=== PATIENT | male | born 1950 | race Caucasian/White ===

== ENCOUNTER → 2024-12-15 12:04 | Outpatient (REF) | payer OTHER, SELFPAY | LOC: HWRAD 12:04 | PROVIDERS: ATTENDING PHYSICIAN Physician Assistant | DX: M25.561 Pain in right knee (principal) | CPT/HCPCS: 73564 ==

== ENCOUNTER → 2025-01-12 09:55 | Outpatient (REF) | payer OTHER, SELFPAY | LOC: RAD 09:55 | PROVIDERS: ATTENDING PHYSICIAN Physician Assistant; FAMILY PHYSICIAN Family Medicine | DX: R13.14 Dysphagia, pharyngoesophageal phase (principal) | CPT/HCPCS: 74246 ==

== ENCOUNTER 2025-02-07 21:26 | Inpatient (IN) | payer OTHER, SELFPAY ==
[2025-02-07] VITALS (33 sets, daily range): BP systolic 75–211; BP diastolic 45–143; BMI 29.7
--- NOTE | 2025-02-07 17:48 | EDRN ---
1750 RSI medications given to intubate the patient.
20mg etomidate IVP
100mg rocuronium IVP
7.5 ETT placed with with positive color change and bilateral breath sounds.
--- NOTE | 2025-02-07 18:04 | ED.GENMED ---
History of Present Illness
General
Chief Complaint: CODE
Source: records, family and ambulance crew
Exam Limitations: clinical condition
Time Seen by Provider: 02/07/25 17:57
Nursing documentation reviewed up to this point in time: agreed with
History of Present Illness
History of Present Illness:
74-year-old male presents to the emergency room status post cardiac arrest. Patient cannot participate in history, history obtained from EMS crew as well as patient's with whom I directly spoke. Apparently patient sat down to watch a [employer]
this afternoon around 130 or 2 PM and told his that he was feeling a bit dizzy. She says that he looked pale. Apparently they checked his blood pressure and it was low. He says that he was having some 'fuzziness' of his vision. They decided
to call the primary doctor and by the time they spoke to the on-call physician patient was feeling a bit better. They sat him down and put his feet up and had him drink some water and he relax for the afternoon. Around 5 PM he was talking to his
family and suddenly went unresponsive. No pulse detected EMS was called and daughter initiated CPR. BLS arrived and applied AED and shock advised x 2; patient had ROSC after second shock. On arrival of ALS crew patient had strong pulses sinus
tachycardia with some nonspecific ST changes on EKG. He was transported to the emergency room. He apparently did not complain of any chest pain according to , no known cardiac history. He has seen Dr. Salazar for 'thrombophlebitis.'
Review of Systems
Review of Systems
Unable to obtain full review of systems at this time due to: due to acuity
All Other Systems: Not applicable
Phy Exam
Physical Exam
Physical Exam:
General: Responsive to painful stimuli GCS is 7
Head: Normocephalic, atraumatic
Eyes: Conjunctiva normal, pupils midrange and sluggish bilaterally
Throat: Vomitus around upper airway, moist mucous membranes
Neck: Trachea midline
Lungs: Clear to auscultation bilaterally, no wheezing, rales, rhonchi
Heart: Tachycardia with regular rhythm, no murmurs, gallops, or rubs
Abd: Soft, mildly distended
Neuro: GCS 7 as above
Extremities: No edema in extremities, equal pulses in all extremities
Scores
Heart Failure Risk
Heart Failure Risk Score: Not Applicable
Heart Score for Chest Pain Patients
STEMI patient?: Not applicable
Withdrawal Assessment of Alcohol
Withdrawal Assessment Completed?: Not applicable
Course
Orders/Labs/Results
Orders:
Orders
02/07/25 17:46
EKG [Electrocardiogram (*1)] Urgent
Reason for Study: Chest Pain
02/07/25 17:47
EKG- Treatment ONCE
02/07/25 17:54
Propofol 1,000,000 Mcg/100 ml [Diprivan] 1,000,000 mcg in 100 ml .ROUTE .STK-MED
Chest X-ray Portable [CR Chest Portable - 1 View] Urgent
Comment:
Reason For Exam: post intubation
Reason Study Needs to be Portable: Patient Unstable
02/07/25 17:57
FentaNYL 1,000 MCG/100 ML [Sublimaze] 1,000 mcg in 100 ml IV NOW
Indication:: Light Sedation
Begin Infusion:: Now
Goal:: pain score </= 1, CPOT 0-2
Maximum dose in mcg/hr:: 300
Continue currently infusing dose and titrate:: Yes
Titration Instructions:: Titrate every 30 minutes if patient exhibits signs of pain or discomfort
Titration Instructions:: (pain score >/= 2, CPOT >/= 3).
Titration Instructions:: Administer bolus dose and increase infusion by 25 mcg/hr.
Taper Instructions:: If pain score at goal for 4 consecutive hours (pain score </= 1, CPOT 0-2)
Taper Instructions:: decrease infusion by 50 mcg/hr every 2 hours.
Taper Instructions:: When dose </= 50 mcg/hr may turn infusion off and consider PRN
Taper Instructions:: intermittent bolus doses only.
Over-sedation Instructions:: If CPOT 0-2 (goal) and RASS -3 to -5 (below goal) decrease sedative by 50%
Over-sedation Instructions:: first. If pain score remains at goal and RASS remains below goal in 1 hour,
Over-sedation Instructions:: decrease opioid infusion by 50%.
Notify provider:: immediately if pt exhibits: chest wall rigidity, hemodynamic instability,
Notify provider:: agitation/pain despite maximum dosing, pain when RASS below goal.
Additional Instructions:: Patient MUST be mechanically ventilated.
Fentanyl Citrate/Pf [Sublimaze] 50 mcg IV NOW STA
Fentanyl Citrate/Pf [Sublimaze] 50 mcg IV [id number] PRN
Propofol 1,000,000 Mcg/100 ml [Diprivan] 1,000,000 mcg in 100 ml IV NOW
Indication:: Light Sedation
Begin Infusion:: Now
Goal:: RASS 0 to -2
Maximum dose in mcg/kg/min:: 50
Initial dose based on RASS:: Yes
If RASS is:: +1 or pt hemodynamically unstable (SBP < 90mmHg), initiate at 10 mcg/kg/min
If RASS is:: +2, initiate at 20 mcg/kg/min
If RASS is:: greater than or equal to +3, initiate at 30 mcg/kg/min
Titration Instructions:: Titrate by 5-10 mcg/kg/min every 5 minutes until RASS 0 to -2 achieved.
Taper Instructions:: If RASS is at or below goal for 4 consecutive hours decrease infusion by
Taper Instructions:: 5-10 mcg/kg/min every 2 hours to off.
Over-sedation Instructions:: If CPOT 0-2 (at goal) AND RASS -3 to -5 (below goal) decrease sedative by
Over-sedation Instructions:: 50% first. If pain score remains at goal and RASS remains below goal in
Over-sedation Instructions:: 1 hour, decrease opioid infusion by 50%.
Notify provider:: immediately if patient exhibits signs/symptoms of propofol-related
Notify provider:: infusion syndrome.
Additional Instructions:: Patient MUST be mechanically ventilated and MUST receive analgesia.
02/07/25 17:58
CT Chest/abd/pelvis Angio W/wo Urgent
Comment:
Reason For Exam: chest pain, severe HTN, cardiac arrest
CT Head W/o Iv Contrast Urgent
Comment:
Reason For Exam: cardiac arrest
0.9% Sodium Chloride 1000 ml [Nss] 1,000 ml IV BOLUS
02/07/25 17:59
Alcohol Urgent
Complete Blood Count/With Diff Urgent
Comprehensive Metabolic Panel Urgent
Lactate Level [Lactic Acid] Urgent
NT-proBNP Urgent
PTT Urgent
Prothrombin Time Urgent
Triglycerides Routine
Comment: baseline levels with propofol infusion
Troponin I Urgent
02/07/25 18:00
Electrocardiogram (*1) Urgent
Reason for Study: Chest Pain
EKG- Treatment ONCE
COVID-19 Antigen Urgent
Source: Nasal Swab
Influenza A+B Rapid Molecular Urgent
JESSE Source: Nasal Swab
Specimen Description:
02/07/25 18:01
Type+Screen Urgent
Blood Culture Q30M
JESSE Source: Blood/Venous
Specimen Description:
Blood Culture Q30M
JESSE Source: Blood/Venous
Specimen Description:
02/07/25 18:17
Echo 2D MMode Color/Doppler Urgent
Reason for Study: cardiac arrest
CARDIOLOGY CONSULT Urgent
Consulting Provider: Mignon Treviño
Was physician already notified: Yes
02/07/25 19:03
Metoprolol [Lopressor] 5 mg .ROUTE .STK-MED ONE
02/07/25 19:04
Metoprolol [Lopressor] 5 mg IV NOW STA
02/07/25 19:07
Nicardipine 40 mg/200 ml [Cardene] 40 mg in 200 ml IV NOW
Initial dose in mg/hr, then titrate:: 5
Titrate to keep:: SBP 140 - 160 mmHg
Titrate by mg/hr:: 2.5 mg/hr
Frequency of titrations (minutes):: 5-15 minutes
Maximum dose in mg/hr:: 15
Begin to taper infusion when:: Remained at goal for 2hrs
Taper by mg/hr:: 2.5 mg/hr
Frequency of taper (minutes) if patient maintains goal:: 15-30 minutes
Taper to off?: Yes
If infusion off & no longer maintaining goal:: Contact Provider
02/07/25 19:16
Drug Screen, Urine [Urine Drug Abuse Screen] Urgent
Date Specimen was Collected: 02/07/25
Time Specimen was Collected: 19:14
Urinalysis Reflex To Culture Urgent
Date Specimen was Collected: 02/07/25
Time Specimen was Collected: 19:14
Urine Microscopic Reflex Cult Urgent
Urine Culture Urgent
JESSE Source: U
Specimen Description:
Date Specimen was Collected: 02/07/25
Time Specimen was Collected: 19:14
02/07/25 19:24
ABO2 Urgent
BBK Wristband Number:
Associate notified that ABO2 has been ordered: [id number]
Date: 02/07/25
Time: 18:13
Professional Employer Consultant ID: [id number]
02/07/25 19:25
ABG [Arterial Blood Gas] Urgent
%Oxygen/Room Air: 95
02/07/25 19:28
Aspirin Chewable [Low Strength Aspirin] 324 mg TUBE NOW STA
Heparin 4,000 units IV NOW STA
Pharmacy Request to Place See Dose Instructions PO NOW STA
Discontinue all Active Warfarin orders?: Yes
Nursing to Place Non Medication Order As Directed
Physician Order: PTT 6 hours after initial start of Heparin infusion
Above order entered?: Yes
02/07/25 19:30
EKG [Electrocardiogram (*1)] Urgent
Reason for Study: Chest Pain
Heparin 65078 Units/250 ml 25,000 units in 250 ml IV PER PROTOCOL
Weight to be used for heparin protocol in kilograms (kg):: 93.6
Protocol:: Cardiac Tx/Acute Coronary
PTT Goal Range to be used:: PTT 73 to 111 seconds
Order type:: Initial
INITIAL Infusion Dose (UNITS/KG/hr) & then follow protocol:: 12 units/kg/hr
Infusion Dose in UNITS/hr & then follow protocol (UNITS/hr):: 1,000
INFUSION RATE in mL/hr & then follow protocol (mL/hr):: 10
PTT less than or equal to 64 seconds:: Increase rate by 200 units/hr (+ 2 mL/hr)
PTT 64.1 to 72.9 seconds:: Increase rate by 100 units/hr (+ 1 mL/hr)
PTT 73 to 111 seconds:: Target Range. No change in rate.
PTT 111.1 to 130.9 seconds:: Decrease rate by 100 units/hr (- 1 mL/hr)
PTT 131 to 199.9 seconds:: HOLD for 1 hr. Then decrease rate by 200 units/hr (- 2 mL/hr)
PTT greater than or equal to 200 seconds:: HOLD for 2 hrs & Notify Provider. Then decrease by 200 units/hr (-
2 mL/hr)
Lab follow-up:: Each change, PTT q6h until 2 consecutive are therapeutic. Then PTT
daily.
02/07/25 19:31
EKG- Treatment ONCE
02/07/25 20:00
TSH Reflex To Free T4 Urgent
Pharmacy Request to Place See Dose Instructions IV DIRECTED
Abnormal Lab Results
02/07/25 02/07/25 02/07/25
17:59 19:16 19:25
WBC 13.4 H 10^3/uL
(4.8-10.8)
RBC 4.67 L 10^6/uL
(4.70-6.10)
RDW 14.6 H %
(11.5-14.5)
Abs Immat Gran (auto) 0.2 H 10^3/uL
(0-0.05)
Absolute Neuts (auto) 6.7 H 10^3/uL
(1.4-6.5)
Absolute Lymphs (auto) 5.1 H 10^3/uL
(1.2-3.4)
Absolute Monos (auto) 1.2 H 10^3/uL
(0.1-0.6)
Immature Gran % 1.3 H %
(0-0.5)
pH 7.30 L
(7.35-7.45)
pO2 240 H mmHg
(83-108)
ABG O2 Sat (Measured) 99.7 H %
(94-98)
Carbon Dioxide 19 L mmol/L
(22-30)
BUN 25 H mg/dl
(9-20)
Glucose 182 H mg/dl
(70-99)
Lactic Acid 3.5 H mmol/L
(0.7-2.0)
AST 122 H U/L
(17-59)
ALT 90 H U/L
(0-50)
Troponin I 0.096 H* ng/ml
Triglycerides 213 H mg/dl
(10-149)
Ur Occult Blood Reflex 4+ A
(Negative)
Urine RBC >100 A /HPF
(0-2)
Urine WBC (Reflex) 16-20 A /HPF
(0-5)
Urine Bacteria (Reflex) Few A
(Negative)
Urine Glucose 1+ A
(Negative)
Urine Albumin (Reflex) 3+ A
(Neg - Trace)
02/07/25 17:59
02/07/25 17:59
Vital Signs
Initial and Last Documented VS:
Initial Vital Signs
Temp Pulse Resp BP Pulse Ox
37.2 C 129 16 207/118 90
02/07/25 18:04 02/07/25 18:04 02/07/25 18:04 02/07/25 18:04 02/07/25 18:04
Last Documented Vital Signs
Temp Pulse Resp BP Pulse Ox
37.2 C 128 16 211/110 99
02/07/25 18:04 02/07/25 19:06 02/07/25 19:00 02/07/25 19:06 02/07/25 18:45
Procedures
Intubations
Procedure completed by: Brenton Freeman MD
Method of Intubation: glidescope
Tube size (cm): 7.5
Placement confirmed by: auscutation, CXR and capnography
Breath sounds after intubation: equal
Additional information:
ET tube deep on chest x-ray, retracted 2 cm
Central Line
Left Internal jugular:
Indication for procedure:: cardiac arrest
Procedure completed by: Brenton Freeman MD
If no, reason: Emergency procedure
Central line lumen: triple
Number of attempts: 1
Central line complications: unable to insert line (hematoma left neck)
Right Femoral:
Indication for procedure:: cardiac arrest
Procedure completed by: Brenton Freeman MD
Central line lumen: triple
Number of attempts: 2
Central line complications: unable to insert line (unable to pass wire)
MDM/Problems Addressed
Differential Diagnosis Includes:
Sudden arrhythmia, acute NV, PE, aortic dissection, electrolyte derangement
MDM/Problems Addressed:
74-year-old male presents status post sudden cardiac arrest. Witnessed arrest by family had 10 minutes of CPR, 2 shocks by AED�BLS crew was first on the scene and applied AED unclear what first rhythm was. By the time ALS arrived patient had ROSC
total estimated downtime 10 minutes. He arrives to us severely hypertensive 207/118. Pulse 120s sinus tach on EKG. Respiratory rate and pulse ox acceptable he is being bagged but has vomitus around his airway. He was intubated as documented
procedure note, chest x-ray showed deep ET tube this was retracted. Usual labs sent off. Sent for CT head status post cardiac arrest. Will also check CTA of the chest/abdomen/pelvis. Case was discussed with interventional cardiology and general
cardiology to review case given arrest with shockable rhythm although EKG shows no clear STEMI that showed new bifascicular block. Family updated. Plan for ICU admission.
Discussed with dog pound attendant regarding cooling�recommend goal normothermia for now no cooling at this point. Discussed case with hospitalist to facilitate admission.
Discussed with cardiology at bedside�recommended initiating aspirin and heparin infusion. Admit to ICU.
*Radiology
Radiology exam reviewed: preliminary read by ED provider and radiology read reviewed
*Pulse Oximetry
Patient hypoxic: no
*EKG
Interpreted by ED Provider?: Yes
Heart Rate: 120
Rate: tachycardiac
Rhythm: sinus
[place]: left axis deviation
Interval: normal interval
QRS Pattern: left vent hypertrophy and other (Bifascicular block)
Ischemia: non-specific ST changes
*Critical Care Note
Total Time (30-74mins, 75-104mins- exclusive of procedures): 45
comment:
Critical care statement: A total of 45 minutes of critical care time was provided for this patient. This includes management of unstable vital signs, evaluation of the patient at bedside, frequent reassessment, discussion with
consultants/hospitalist, and review of pertinent medical records. This time was separate from time utilized to perform any aforementioned documented procedures
Data Reviewed
Review of Other/Old Records Reveals: Labs and Records
Source: records, family and ambulance crew
Patient Management
Discussion with other providers: Hospitalist (Discussed with hospitalist), Customer Care Coordinator (Discussed with cardiology (interventional and general), discussed with dog pound attendant) and Radiologist (Discussed with radiology)
Escalation/DeEscalation of care consider admission/obs:
Admission indicate
ED Attending Note
-
Portions of this chart may have been created with voice recognition software.� Occasional wrong word or��sound alike� substitutions may have occurred due to the inherent limitations of voice recognition software.
Discharge Plan
Departure
Patient Disposition: Admit
Date of Disposition: 02/07/25
Time of Disposition: 19:14
Admit to: ICU
Presentation/result/management discussed w/ accepting MD/DO: Hospitalist
Discharge Problem:
Cardiac arrest, Hypertension
Prescriptions:
No Action
famotidine 20 mg Tablet
20 mg PO HS
pantoprazole 40 mg Tablet,Delayed Release (Dr/Ec)
40 mg PO DAILY
olmesartan 20 mg Tablet
20 mg PO DAILY
Saline Nasal 0.65 % Aerosol,[place]
1 spray INTRANASAL DAILYPRN PRN (Reason: dry sinuses)
Referrals:
UNKNOWN,NO INTERVIEW [Unknown Provider] -
Interventions
Interventions:
*Risk Screen - Suicide Last Done: 02/07/25 18:04
*General Assessment Last Done: 02/07/25 18:04
*Neglect/Abuse Screening Last Done: 02/07/25 18:04
*ED- Fall Risk Assessment Last Done: 02/07/25 18:51
*ED COVID-19 Vaccine History Last Done: 02/07/25 19:01
ED- Cardiac Assessment Last Done: 02/07/25 18:51
Discharge Date and Time
Print Language: MACEDONIAN
[2025-02-07 18:06] LABS: % Basophils 0.4 % (0-2); % Eosinophils 1.3 % (0-6); % Immature Granulocytes 1.3 % (0-0.5); % Lymphocytes 37.9 % (20.5-51.1); % Monocytes 9.2 % (1.7-9.3); % Neutrophils 49.9 % (42.2-75.2); Absolute Basophils 0.1 10^3/uL (0-0.2); Absolute Eosinophils 0.2 10^3/uL (0-0.7); Absolute Immature Granulocytes 0.2 10^3/uL (0-0.05); Absolute Lymphocytes 5.1 10^3/uL (1.2-3.4); Absolute Monocytes 1.2 10^3/uL (0.1-0.6); Absolute Neutrophils 6.7 10^3/uL (1.4-6.5); Hematocrit 43.2 % (39.0-52.0); Hemoglobin 14.4 g/dL (13.0-18.0); Mean Corp Hgb Conc. 33.3 g/dL (33.0-37.0); Mean Corpuscular Hgb 30.8 pg (27.0-31.0); Mean Corpuscular Volume 92.5 fL (80.0-94.0); Mean Platelet Volume 10.1 fL (7.4-10.4); Nucleated Red Blood Cells % 0 % (-); Platelet Count 289 10^3/uL (130-400); Red Blood Cell Count 4.67 10^6/uL (4.70-6.10); Red Cell Dist. Width 14.6 % (11.5-14.5); White Blood Cell Count 13.4 10^3/uL (4.8-10.8)
[2025-02-07 18:16] LABS: APTT 25.2 Sec (23.4-35.0); INR 0.99; PT 13.4 Sec (11.4-14.6)
[2025-02-07 18:23] LABS: ALT (SGPT) 90 U/L (0-50); AST (SGOT) 122 U/L (17-59); Albumin 4.1 g/dl (3.5-5.0); Alkaline Phosphatase 95 U/L (38-126); Blood Urea Nitrogen 25 mg/dl (9-20); Calcium 9.2 mg/dl (8.4-10.2); Carbon Dioxide 19 mmol/L (22-30); Chloride 107 mmol/L (98-107); Glucose 182 mg/dl (70-99); Potassium 3.9 mmol/L (3.5-5.1); Sodium 138 mmol/L (135-145); Total Bilirubin 0.9 mg/dl (0.2-1.3); Total Protein 7.1 g/dl (6.3-8.2); Triglycerides 213 mg/dl (10-149); eGFR > 60.00
[2025-02-07 18:24] LABS: Alcohol None Detected
[2025-02-07 18:28] LABS: COVID-19 Antigen Negative (Negative)
[2025-02-07] MEDS: DIPRIVAN 100 IV (18:38)
[2025-02-07 18:39] LABS: Lactic Acid 3.5 mmol/L (0.7-2.0)
[2025-02-07] MEDS: NSS 1000 IV (18:39)
[2025-02-07 18:55] LABS: NT-proBNP 1070 pg/ml; Troponin I 0.096 ng/ml
[2025-02-07] MEDS: LOPRESSOR 5 MG IV (19:06)
[2025-02-07] MEDS: CARDENE 200 IV (19:17)
[2025-02-07 19:29] LABS: Urine Albumin 3+ (Neg - Trace); Urine Bilirubin Negative (Negative); Urine Character Slightly Cloudy (Clear); Urine Color Yellow; Urine Glucose 1+ (Negative); Urine Ketone Negative (Negative); Urine Leukocyte Negative (Negative); Urine Nitrite Negative (Negative); Urine Occult Blood 4+ (Negative); Urine Urobilinogen Negative (Neg - 1+); Urine pH 6.5 (5.0-9.0)
[2025-02-07 19:35] LABS: Amphetamines Negative (Negative); Barbiturates Negative (Negative); Benzodiazepines Negative (Negative); Buprenorphine Negative (Negative); Cocaine Negative (Negative); Marijuana Negative (Negative); Methadone Negative (Negative); Methamphetamines Negative (Negative); Opiates Negative (Negative); Phencyclidine Negative (Negative); Tricyclic Antidepressants Negative (Negative)
[2025-02-07] MEDS: HEPARIN 4000 UNITS IV (19:36)
[2025-02-07] MEDS: LOW STRENGTH ASPIRIN 324 MG TUBE (19:37)
--- NOTE | 2025-02-07 19:37 | CON.CAR ---
Addendum entered and electronically signed by Errol Silva MD 02/07/25 20:13:
Attending addendum: I saw in old records that patient has a history of Hodgkin's s/p splenectomy and radiation: I went back and spoke with family. He has a history of mantle radiation in his 20's.
Original Note:
Consultation
Consultation Request
Date/Time Consultation Requested: February 07 2025 183
Date/Time Consultation Performed: February 07 2025 at 1930
Requesting Provider: Dr. Saw Freeman
Performing Provider: Dr. Errol Silva
Reason for Consultation: Out of Hospital Cardiac Arrest
Medical History
-
Chief Complaint: Out of Hospital Cardiac Arrest
History of Present Illness:
This is a 74 year old gentleman with a PMH notable for dysphagia and esophageal stricture and long history of GERD s/p recent UGI for dysphagia which was notable for severe GERD and smooth narrowing of the proximal / mid esophagus. He also has a
history of hypertension chronically treated with olmesartan 20mg daily.
Family reports worsened symptoms of GERD over many months. Today, he went shopping with his and was feeling poorly when they returned home between 2-3pm. Blood pressures were checked several times as he reported dizziness with SBP readings as
low as 106 mmHg. His son-in-law asked was talking to him about golf and went to get the patient a glass of water. When he returned the patient slumped over. His son-in-law called for help and CPR was initiated initially in the chair then the
family moved him to the floor and continued compressions. 911 was called and an AED was applied finding a shockable rhythm. He received 2 shocks via the AED and an additional 10-minutes of CPR. He was transferred to and intubated.
ECG's at [place] notable for a RBBB / LAFT and LVH with repolarization but no acute ST elevation
Echocardiogram: EF 50-55% with mild-moderate MR. No sizable regional wall motion abnormalities
Troponin: 0.096 ng/ml, Lactic acid: 3.5, AST/ALT: 122/90, Gluc: 182.
PMH:
-Hypertension
-esophageal stricture
-Hodgkin's disease s/p splenectomy and radiation to the chest
Social History
Tobacco: Non-Smoker
Alcohol: Occasional
Drug: None
Personal:
Living: With Family
Family History
Family History: Reviewed & Not Pertinent
Allergies / Home Medications
Allergy/AdvReac Type Severity Reaction Status Date / Time
acetaminophen [From Vicodin] Allergy CHEST PAIN Verified 02/07/25 18:17
erythromycin base Allergy throat Verified 02/07/25 18:17
closing
hydrocodone bitartrate Allergy CHEST PAIN Verified 02/07/25 18:17
[From Vicodin]
tetracycline Allergy throat Verified 02/07/25 18:17
closing
grasses Allergy sneezing Uncoded 02/07/25 18:03
and itching
mold Allergy SNEEZING Uncoded 02/07/25 18:03
AND ITCHING
SULFA EYE DROPS Allergy SWELLING Uncoded 02/07/25 18:03
OF EYE
tree pollen Allergy sneezing,itchy Uncoded 02/07/25 18:03
eyes,throat,nose
�Medication �Instructions �Recorded �Confirmed �Type
acetaminophen 325 mg tablet 650 mg PO Q4HPRN PRN pain 10/03/16 10/03/16 History
aspirin 81 mg tablet,delayed 81 mg PO DAILY 10/03/16 10/03/16 History
release
ibuprofen 200 mg tablet (Advil) 400 mg PO Q4H 10/03/16 10/03/16 History
lansoprazole 15 mg capsule,delayed 15 mg PO PRN PRN gerd 10/03/16 10/03/16 History
release (Prevacid)
mometasone 50 mcg/actuation nasal 17 gm NS PRN PRN congestion 10/03/16 10/03/16 History
spray (Nasonex)
Review of Systems
-
Unable to obtain full review of systems at this time due to: Patient Intubation
History Source: Family
Physical Exam
Vital Signs
Temp Pulse Resp BP Pulse Ox
98.9 F 128 16 211/110 99
02/07/25 18:04 02/07/25 19:06 02/07/25 19:00 02/07/25 19:06 02/07/25 18:45
Lab Results
02/07/25 17:59
02/07/25 17:59
Troponin I 0.096 ng/ml H* 02/07/25 17:59
Cvj-R-Bocwibsxuwr Pept 1070 pg/ml 02/07/25 17:59
Physical Exam:
GEN: Intubated and sedated. Small left neck hematoma.
HEENT: NC/AT, sclera are anicteric
NECK: No bruit noted
LUNGS: Clear in the anterior and lateral lung [place].
CV: Regular rate and rhythm. Normal S1/S2. Murmur: None
ABD : Soft, Bowel sounds are present.
EXT: No CCE
NEURO: No focal neurologic deficits
Impression / Plan
-
IMPRESSION/RECOMMENDATIONS:
-Out of hospital cardiac arrest with shockable rhythm
No ST elevation on ECG
LVEF looks preserved on echocardiogram done in the ED
Will maintain normothermia with targeted temperature management strategy
Trend serial troponin
Initiate heparin drip
Load with aspirin 324 mg x 1 then 81mg daily
-Hypertension:
Quite hypertensive in the ED. IV lopressor given with improvement in HR and BP
ED started IV nicardipine. Will follow with low threshold to change to IV esmolol
-Severe GERD and prior history of esophageal stricture
Awaiting GI evaluation
Consider IV PPI vs PPI via NG
-Hx of Hodgkin's disease and 'chest radiation' per old records s/p splenectomy
Will need to obtain additional history from family and PCP as this may impact therapy
Data Reviewed
-
EKG: Tracing Personally Visualized and interpreted
Radiology: Image Personally Visualized and interpreted
CT Scan: Image Personally Visualized and interpreted
Medical Tests (Nuc Med, Echo etc): Image Personally Visualized and interpreted
Labs: Labs Reviewed by me
Old Records: Reviewed
[2025-02-07 19:38] LABS: HCO3 22.6 mmol/L (21-28); O2 Saturation % 99.7 % (94-98); PCO2 46 mmHg (35-48); PO2 240 mmHg (83-108)
[2025-02-07] MEDS: SUBLIMAZE 50 MCG IV (19:41)
[2025-02-07] MEDS: SUBLIMAZE 100 IV (19:41)
[2025-02-07 19:42] LABS: Urine Red Blood Cell >100 /HPF (0-2)
[2025-02-07 19:44] LABS: Urine Bacteria Few (Negative); Urine White Cell 16-20 /HPF (0-5)
--- NOTE | 2025-02-07 20:43 | HPS.HSE ---
Family Physician
-
Family Physician: PRAVIN Kelly
Chief Complaint
-
Cardiac Arrest
History of Present Illness
Patient is a 74y M with PMH significant for hypertension, GERD and remote Hodgkin's lymphoma who presents to ED following cardiac arrest. History obtained from family at the bedside, ED staff, etc.
Patient has been feeling well lately. No recent fever, cough, GI symptoms, etc.
Today around 1:30 - 2PM he felt lightheaded. noted that he was pale appearing. He complained of some blurry vision. He took his BP at home and this was very low - in the 80-100 range systolic.
They called the PCP; however, when they received a return call the patient stated that he was feeling improved.
He lie in a recliner with his feet elevated. Family encouraged him to drink fluids which he did. He stated that he continued to feel improved.
Around 5PM, patient suddenly slumped to the side and became unresponsive. His daughter who was present assessed him, found him to be without pulses and immediately started CPR.
911 was called. BLS arrived first and applied an AED. This advised shock x 2 (unclear for what rhythm). Following second shock ROSC was achieved.
EMS arrived and patient was transported to for further evaluation. He had N/V here in the ED. He was moving spontaneously / responding to noxious stimuli.
Patient was sedated and intubated in the ED.
He was initially noted to be hypertensive and tachycardic. He was started on nicardipine infusion.
At the time of my examination his BP was much improved and the nicardipine was discontinued. Patient is moving hands / feet / facial muscles occasionally.
Family states that he has had recent issues with heartburn / reflux. He was complaining of this earlier today.
He is on olmesartan for BP and notes that this was newly started a few months ago.
Medical History
Past Medical History
Past Medical History: Reports Other
Additional Past Medical History:
Hodgkin's Lymphoma (Splenectomy / XRT - 26yo)
Hypertension
GERD
Past Surgical History: Reports Other
Additional Past Surgical History:
Splenectomy
Left TKA
Social History
Tobacco: Non-smoker
Alcohol: Daily (1 beer / day on average.)
Drug: None
Personal:
Living: With Family
Family History
Family History: Other (Mother: Longevity Father: Alcoholic Daughter: Tissue Plasminogen Deficiency)
Allergies / Home Medications
Allergies reflects when Allergies were last updated in [facility].
Home Medications with original date entered in [facility]
Allergy/Medication List:
Allergies
Allergy/AdvReac Type Severity Reaction Status Date / Time
acetaminophen [From Vicodin] Allergy CHEST PAIN Verified 02/07/25 18:17
erythromycin base Allergy throat Verified 02/07/25 18:17
closing
hydrocodone bitartrate Allergy CHEST PAIN Verified 02/07/25 18:17
[From Vicodin]
tetracycline Allergy throat Verified 02/07/25 18:17
closing
grasses Allergy sneezing Uncoded 02/07/25 18:03
and itching
mold Allergy SNEEZING Uncoded 02/07/25 18:03
AND ITCHING
SULFA EYE DROPS Allergy SWELLING Uncoded 02/07/25 18:03
OF EYE
tree pollen Allergy sneezing,itchy Uncoded 02/07/25 18:03
eyes,throat,nose
Home Medications
famotidine 20 mg tablet 20 mg PO HS 02/07/25
olmesartan 20 mg tablet 20 mg PO DAILY 02/07/25
pantoprazole 40 mg tablet,delayed release 40 mg PO DAILY 02/07/25
sodium chloride 0.65 % nasal spray aerosol (Saline Nasal) 1 spray intranasal DAILYPRN PRN dry sinuses 02/07/25
Review of Systems
-
Unable to obtain full review of systems at this time due to: Patient Intubation
Physical Exam
Vital Signs
Vital Signs
Temp Pulse Resp BP Pulse Ox
98.9 F 94 17 128/82 100
02/07/25 18:04 02/07/25 20:30 02/07/25 20:30 02/07/25 20:30 02/07/25 20:00
Physical Exam
General: Other (74y M sedated, intubated in the ED.)
HEENT: Other (ETT and OGT in place. L neck soft hematoma. No appreciable JVD.)
Respiratory: Clear; No Wheezes, Rales or Rhonchi
Cardiac: S1/S2 and Regular Rhythm; No Murmur
GI: Soft, Non Tender, Non Distended and Normal Bowel Sounds
Rectal: Other (Brown, heme positive stool.)
Musculoskeletal: No Clubbing, No Cyanosis, No Edema and Other (Moderate varicose veins / venous insufficiency skin changes.)
Neuro: Sedated and Other (Moving extremities / facial muscles spontaneously.)
Laboratory Results
-
02/07/25 17:59
02/07/25 17:59
Laboratory Results
PT 13.4 Sec (11.4-14.6) 02/07/25 17:59
INR 0.99 02/07/25 17:59
APTT 25.2 Sec (23.4-35.0) 02/07/25 17:59
pH 7.30 (7.35-7.45) L 02/07/25 19:25
pCO2 46 mmHg (35-48) 02/07/25 19:25
pO2 240 mmHg (83-108) H 02/07/25 19:25
HCO3 22.6 mmol/L (21-28) 02/07/25 19:
Lactic Acid 3.5 mmol/L (0.7-2.0) H 02/07/25 17:59
Total Bilirubin 0.9 mg/dl (0.2-1.3) 02/07/25 17:59
AST 122 U/L (17-59) H 02/07/25 17:59
ALT 90 U/L (0-50) H 02/07/25 17:59
Alkaline Phosphatase 95 U/L (38-126) 02/07/25 17:59
Troponin I 0.096 ng/ml H* 02/07/25 17:59
Impression/Plan
-
A/P: Patient is a 74y M with PMH significant for GERD and remote Hodgkin's lymphoma who presents to ED following cardiac arrest. ROSC achieved prior to arrival. Intubated in the ED.
Cardiac Arrest
- Admit to ICU for further evaluation and treatment.
- Initial troponin 0.096. EKG with LVH / repol changes. ST changes in inferior leads concerning for ischemia that improved with serial tracings here in the ED.
- Primary cardiac event seems likely.
- IV heparin initiated. ASA daily.
- IV Lopressor with holding parameters.
- Follow serial troponin to peak.
- Cardiology evaluation appreciated. Will require ischemic evaluation in the near future.
- Echo done in the ED with normal LVEF. Inferior / apical / septal hypokinesis. Moderate MR.
- CT head unremarkable.
- Continue supportive measures including vent support, sedation / pain control, etc.
- Senior Logistics Manager evaluation. Neuro evaluation.
- Avoid fever / ensure normothermia.
GERD
Heme Positive Stools
- Patient initially pale and hypotensive at home. Heme positive stool in the ED.
- Initial Hg = 14.4.
- IV PPI BID for now.
- Monitor for any evident bleeding. Follow serial H&H and transfuse if needed.
- GI evaluation for eventual investigation.
Hypertension
- BP markedly elevated in the ED - but improved fairly quickly.
- Now off of nicardipine.
- IV Lopressor as noted above with holding parameters for low BP.
- Note that BP at home today was reportedly 80s - 100s systolic prior to arrest.
Multinodular Goiter
- Noted on CT chest. Check TFTs.
History of Hodgkin's Lymphoma
Chronic Calcified Mediastinal Mass
- Remote history of splenectomy and XRT (26 yo).
- CT shows stable mediastinal mass.
DVT Prophylaxis: IV Heparin at present
Code Status: Full
[2025-02-07 21:14] LABS: TSH Reflex To Free T4 8.74 uIU/ml (0.47-4.68)
[2025-02-07] MEDS: HEPARIN 25000 UNITS/250 ML IV (21:22)
[2025-02-07 21:25] LABS: Troponin I 0.731 ng/ml
[2025-02-07 21:43] LABS: Free T4 0.68 ng/dl (0.78-2.19)
[2025-02-07] MEDS: LEVOPHED 250 IV (21:45)
[2025-02-07] MEDS: NSS 500 IV (21:50)
--- NOTE | 2025-02-07 22:20 | PTCARENOTE ---
Addendum entered by Brittny Mccullough RN 02/08/25 02:51:
Oxygen titrated down to 60%, sats 100% on 80% FiO2.
Original Note:
Patient received from the ED via stretcher accompanied by RN and respiratory therapist. Transferred and admitted to ICU bed 3369. He is currently intubated and sedated on Propofol at 40mcg. HOB up 30 degrees. #7.5 ETT 24cm at the lip on the right.
Vent settings AC 16/TV 450/FiO2 80%/PEEP +5. OGT in place at 56cm, placement verified via auscultation, placed to LIS, milky yellow drainage suctioned. BBS diminished posteriorly with intermittent expiratory wheezes scattered t/o. S1S2 distant. SR
on CM with 1st degree AVB and BBB, frequent pac's. His RASS in -3 to -4, responding to painful stimuli. Diprivan titrated as needed for adequate sedation, RASS -1 to -2. Bilateral pupils 2mm and ERRL. No spontaneous movement noted of extremities.
Bilateral soft wrist restraints donned. Salazar catheter patent draining cloudy yellow urine, 450cc emptied.
--- NOTE | 2025-02-07 22:35 | PTCARENOTE ---
Vilma placed right radial by Paloma, ICU VINYL FLOORING INSTALLER. BP noted low. Levophed gtt resumed at 4mcg. Titrated to keep SBP > 65. Diprivan gtt decreased to 20mcg.
--- NOTE | 2025-02-07 23:30 | PTCARENOTE ---
ETT adjusted to 23cm from 24cm by RT per CXR, assisted. Repeat CXR performed. Oxygen titrated down to 40% on vent, sats 100%.
--- NOTE | 2025-02-07 23:30 | W.PN.UPDATE ---
Update Note
Progress Note Update
Operation/Procedure: right radial arterial line placement
Consent for operation or procedure: Emergent need due to patient condition - need for invasive monitoring per protocol
Indications: Hemodynamic monitoring
After properly positioning the patient's wrist in the standard fashion, the site was prepped and draped in a sterile fashion. The radial artery was entered, noting bright red, pulsatile flow. A guidewire was easily inserted, the needle removed,
and the catheter was then placed using the Seldinger technique. The guidewire was removed, with good flow present. The catheter was then connected to the transducer with a good waveform noted. The catheter was secured with an occlusive dressing
was placed after properly cleaning and prepping the site.
Complications: The patient tolerated the procedure well and no complications were noted.
Estimated Blood Loss: minimal
Plan: Arterial line to remain in place for hemodynamic monitoring.
[2025-02-08] VITALS (17 sets, daily range): BP systolic 80–124; BP diastolic 54–72; BMI 29.9
[2025-02-08 00:02] LABS: Glucose - Point of Care 127 mg/dl (70-99)
[2025-02-08 00:29] LABS: Magnesium 2.1 mg/dl (1.6-2.3); Phosphorus 3.6 mg/dl (2.5-4.5)
--- NOTE | 2025-02-08 00:30 | PTCARENOTE ---
Continuing to titrate Levophed per MAP. Attempts to open eyes with name called. Maintaining adequate sedation at 20mcg Diprivan. Repositioned every 2 hours. Bilateral soft wrist restraints checked and retied every 2 hours. Rest of physical
assessment essentially unchanged. UO adequate.
[2025-02-08] MEDS: PROTONIX IV 40 MG IV ×3 (00:53→21:03)
[2025-02-08] MEDS: NSS (PRESERVATIVE FREE) 10 ML IV ×3 (00:57→21:03)
[2025-02-08] MEDS: LOPRESSOR IV (00:58)
[2025-02-08] MEDS: TYLENOL ORAL SOLUTION 650 MG TUBE ×2 (00:59→06:12)
[2025-02-08] MEDS: DIPRIVAN 100 IV (00:59)
[2025-02-08] MEDS: NSS 1000 IV ×2 (01:57→14:29)
[2025-02-08 03:22] LABS: Hematocrit 39.6 % (39.0-52.0); Hemoglobin 13.3 g/dL (13.0-18.0)
[2025-02-08] MEDS: SUBLIMAZE 50 MCG IV ×2 (03:25→04:48)
[2025-02-08 03:30] LABS: APTT 76.2 Sec (23.4-35.0)
[2025-02-08 03:48] LABS: ALT (SGPT) 107 U/L (0-50); AST (SGOT) 159 U/L (17-59); Albumin 3.6 g/dl (3.5-5.0); Alkaline Phosphatase 91 U/L (38-126); Blood Urea Nitrogen 28 mg/dl (9-20); Calcium 8.3 mg/dl (8.4-10.2); Carbon Dioxide 20 mmol/L (22-30); Chloride 107 mmol/L (98-107); Direct Bilirubin 0.2 mg/dl (0.0-0.4); Estimated Creatinine Clearance 50 ml/min; Glucose 156 mg/dl (70-99); HDL Cholesterol 45 mg/dl; LDL Cholesterol, Calculated 86 mg/dl; Potassium 4.9 mmol/L (3.5-5.1); Sodium 137 mmol/L (135-145); Total Bilirubin 1.2 mg/dl (0.2-1.3); Total Cholesterol 147 mg/dl (50-199); Total Protein 6.2 g/dl (6.3-8.2); Triglyceride 84 mg/dl (10-149); Very Low Density Lipoprotein 16 mg/dl (0-30); eGFR 57.65
--- NOTE | 2025-02-08 04:00 | PTCARENOTE ---
Remains afebrile, VSS. BBS clear at this time. Scant secretions via ETT. Fingertips and toes warmer with better color than initial assessment. Opens eyes to name spoken. Does not shake head yes/no to questions asked. Otherwise, rest of physical
assessment unchanged.
[2025-02-08] MEDS: SUBLIMAZE 100 IV (04:49)
[2025-02-08] MEDS: LOPRESSOR 5 MG IV ×3 (06:12→18:04)
[2025-02-08 06:14] LABS: B.E. -5.6 mmol/L; PCO2 29 mmHg (35-48); PO2 249 mmHg (83-108)
[2025-02-08 06:26] LABS: Glucose - Point of Care 125 mg/dl (70-99)
[2025-02-08 06:27] LABS: Lactic Acid 0.9 mmol/L (0.7-2.0)
--- NOTE | 2025-02-08 07:09 | PTCARENOTE ---
Report given verbally to RN assuming careNayely. Questions answered.
[2025-02-08] MEDS: LOW STRENGTH ASPIRIN 81 MG TUBE (07:48)
[2025-02-08] MEDS: MIRALAX 17 GRAMS TUBE (07:49)
--- NOTE | 2025-02-08 08:32 | CON.INTV ---
Consultation
Consultation Request
Date/Time Consultation Requested: 02/07/2025
Date/Time Consultation Performed: 02/08/2025
Requesting Provider: Joss Harley DO
Performing Provider: Russ Daily MD
Reason for Consultation: Cardiac Arrest
Medical History
-
Chief Complaint: Cardiac Arrest-out of hospital
History of Present Illness:
74-year-old male presented to the emergency department on 02/07/2025 status postcardiac arrest. Most of the history obtained from chart review, family and ICU nurse.
Patient was sitting yesterday around 2 PM when he noticed some dizziness and his noticed that he looked pale and upon checking his blood pressure was low. He had some visual changes as well which resolved within minutes. Family called his PCP
to make him aware however the patient was feeling fine by that time.
Later in the evening he suddenly went unresponsive and his daughter started CPR and less than 1 minute and they called 911. BLS arrived and applied AED x2. Patient had ROSC after second shock. Per the records initial EKG out of the hospital
showed nonspecific ST changes and sinus tachycardia. He was transported to the emergency department. Patient was also sedated and intubated.
In the ER further evaluation showed EKG with sinus tachycardia, left anterior fascicular block, LVH with QRS widening and repolarization abnormality, ST elevation in inferior leads, ST depression in anterior lateral leads
Echo with normal left-ventricular size and low normal left ventricular systolic function, basal to mid inferior/inferoseptal and apical septal hypokinesis, LV ejection fraction 50-55%
Troponin: 0.096 ng/ml, Lactic acid: 3.5, AST/ALT: 122/90, Glucose: 182.
He was also noted to be hypertensive and tachycardic and was started on nicardipine infusion.
Past Medical History
Past Medical History: HTN and Other (Hodgkin's Lymphoma (Splenectomy / XRT), GERD, esophageal stricture)
Past Surgical History: Orthopedic (Left TKA) and Other (Splenectomy)
Social History
Tobacco: Non-smoker
Alcohol: Daily
Drug: None
Personal:
Living: With Family
Family History
Family History: Reviewed & Not Pertinent
Allergies / Home Medications
Allergies
Allergy/AdvReac Type Severity Reaction Status Date / Time
acetaminophen [From Vicodin] Allergy CHEST PAIN Verified 02/07/25 18:17
erythromycin base Allergy throat Verified 02/07/25 18:17
closing
hydrocodone bitartrate Allergy CHEST PAIN Verified 02/07/25 18:17
[From Vicodin]
tetracycline Allergy throat Verified 02/07/25 18:17
closing
grasses Allergy sneezing Uncoded 02/07/25 18:03
and itching
mold Allergy SNEEZING Uncoded 02/07/25 18:03
AND ITCHING
SULFA EYE DROPS Allergy SWELLING Uncoded 02/07/25 18:03
OF EYE
tree pollen Allergy sneezing,itchy Uncoded 02/07/25 18:03
eyes,throat,nose
Home Medications
�Medication �Instructions �Recorded �Confirmed �Last Taken �Type
famotidine 20 mg tablet 20 mg PO HS 02/07/25 02/07/25 02/06/25 History
olmesartan 20 mg tablet 20 mg PO DAILY 02/07/25 02/07/25 02/07/25 History
pantoprazole 40 mg tablet,delayed 40 mg PO DAILY 02/07/25 02/07/25 Unknown History
release
sodium chloride 0.65 % nasal spray 1 spray intranasal DAILYPRN PRN 02/07/25 02/07/25 Unknown History
aerosol (Saline Nasal) dry sinuses
Review of Systems
-
Unable to Obtain full review of systems at this time due to: Patient Intubation
Vitals / Labs / Diagnostic Testing
Vital Signs
Temp Pulse Resp BP Pulse Ox
98.5 F 58 17 105/56 100
02/08/25 07:39 02/08/25 08:02 02/08/25 08:02 02/08/25 08:02 02/08/25 08:02
Lab Data
02/08/25 16:23
02/08/25 03:04
Laboratory Results
02/07/25 02/07/25 02/07/25
17:59 19:25 22:59
PT 13.4
INR 0.99
APTT 25.2
pH 7.30 L Cancelled
pCO2 46 Cancelled
pO2 240 H Cancelled
HCO3 22.6 Cancelled
O2 Delivery Level Cancelled
02/08/25 02/08/25
03:04 06:04
PT
INR
APTT 76.2 H
pH 7.40
pCO2 29 L
pO2 249 H
HCO3 18.0 L
O2 Delivery Level
Microbiology
02/07/25 18:00 Nasal Swab Influenza Types A & B ([facility]) - Final
Negative for Influenza A & B, NAAT
Negative results must be combined with clinical observations
and patient history.
Nucleic Acid Amplification test (NAAT)performed on the
[employer] platform.
Diagnostic Testing: Chest x-ray: No acute cardiopulmonary process
CT Chest/abd/pelvis Angio W/wo:1. No aortic aneurysm or dissection.
2. Minimally displaced anterolateral right fourth, fifth and sixth rib fractures.
3. Suspect diffuse enteritis/ileus.
4. Probably benign although indeterminate right renal lesions. Recommend outpatient workup with dedicated renal ultrasound.
CT head with no acute intracranial abnormality
Chest x-ray: IMPRESSION:
1. Mild pulmonary vascular congestion.
2. Bilateral perihilar linear opacities, most suggestive of subsegmental atelectasis.
Physical Exam
-
Cardiovascular: S1/S2 and Regular Rhythm
Respiratory: Clear and Non-Labored Respirations
GI: Soft, Non Distended and Non Tender
Neurology: Awake
General: Comfortable (Intubated)
Assessment
-
74-year-old male presents to the emergency room status post cardiac arrest.
RECOMMENDATIONS:
#s/p Cardiac arrest out of the hospital
-Continue to trend trops; 18.7 in the AM
-Updated EKG with sinus rhythm, left axis deviation, RBBB and LAFB no longer present
-Awaiting cardiology evaluation for possible cath
-Levophed weaned off
-Off of deprivan
-Continue heparin drip for now with 81 mg daily aspirin
#Ventilator dependent respiratory failure
-Patient wide-awake; ABG with metabolic acidosis and respiratory alkalosis ;spontaneous breathing trial to extubation today
-IV antibiotic: Unasyn
# GERD with heme positive stools
-History of esophageal stricture
-Monitor H&H
-IV PPI twice daily; if hemoglobin continues to drop change PPI to drip
-GI following
-BMP and mag added on lab
-Elevated LFTs likely secondary to cardiac arrest
# Essential hypertension
-Continue to monitor blood pressure; currently stable and patient is off nicardipine drip
# Hypothyroidism
# History of multinodular goiter; noted on CT chest
-TSH mildly elevated with low free T4
-Hold on for consideration of adding Synthroid
# History of Hodgkin's disease
DVT prophylaxis: Patient on heparin drip
GI prophylaxis: Patient on IV PPI twice daily
Data Reviewed
-
EKG: Report reviewed by me
Radiology: Report reviewed by me
CT Scan: Report reviewed by me
Labs: Labs reviewed by me, Discussed with Physician and Discussed with Family
[2025-02-08 08:36] LABS: Glycohemoglobin (HgbA1c) 5.9 % (4.0-5.6)
--- NOTE | 2025-02-08 08:46 | CON.GI ---
Consultation
-
Date/Time Consultation Requested: 02/08/25 6am
Date/Time Consultation Performed: 02/08/25 7am
Requesting Provider: Cricket
Performing Provider: Noman
Reason for Consultation: gerd, heme pos stool
Medical History
Chief Complaint / HPI
Chief Complaint: gerd, heme pos stool
History of Present Illness:
This patient is a 74-year-old man with a history of hypertension and GERD as well as a remote history of Hodgkin's lymphoma who presented to [facility] in cardiac arrest. This occurred on the afternoon yesterday. He did have CPR and did have a
shock twice via AED device. He currently is intubated and sedated. He is on a heparin drip. He does have a NG tube which does not have significant output except for some lightly blood-tinged clear fluid. He has not had any overt upper or lower
GI bleeding. He does have a history of GERD by his chart. He did have both an endoscopy and colonoscopy in 2020. On his endoscopy he had a Schatzki's ring but no esophagitis or gastric erosions. He does have history of diverticulosis of his left
colon and did have some very small polyps removed at that time.
Past Medical History
Past Medical History: Other (GERD, Hodgkin's lymphoma with splenectomy, hypertension)
Past Surgical History: Other (Splenectomy, left TKA)
Social History
Tobacco: Non-Smoker
Family History
Family History: Unable to Obtain
Allergies / Home Medications
Allergy/AdvReac Type Severity Reaction Status Date / Time
acetaminophen [From Vicodin] Allergy CHEST PAIN Verified 02/07/25 18:17
erythromycin base Allergy throat Verified 02/07/25 18:17
closing
hydrocodone bitartrate Allergy CHEST PAIN Verified 02/07/25 18:17
[From Vicodin]
tetracycline Allergy throat Verified 02/07/25 18:17
closing
grasses Allergy sneezing Uncoded 02/07/25 18:03
and itching
mold Allergy SNEEZING Uncoded 02/07/25 18:03
AND ITCHING
SULFA EYE DROPS Allergy SWELLING Uncoded 02/07/25 18:03
OF EYE
tree pollen Allergy sneezing,itchy Uncoded 02/07/25 18:03
eyes,throat,nose
�Medication �Instructions �Recorded
famotidine 20 mg tablet 20 mg PO HS 02/07/25
olmesartan 20 mg tablet 20 mg PO DAILY 02/07/25
pantoprazole 40 mg tablet,delayed 40 mg PO DAILY 02/07/25
release
sodium chloride 0.65 % nasal spray 1 spray intranasal DAILYPRN PRN 02/07/25
aerosol (Saline Nasal) dry sinuses
Review of Systems
-
Unable to obtain full review of systems at this time due to: Patient Intubation
Vital Signs
Temp Pulse Resp BP Pulse Ox
98.5 F 58 17 105/56 100
02/08/25 07:39 02/08/25 08:02 02/08/25 08:02 02/08/25 08:02 02/08/25 08:02
Physical Exam
Exam
General: Intubated
HEENT: Anicteric
GI: Soft and Non Tender
Skin: Warm
Psych: Other (Sedated)
Results
WBC 13.4 10^3/uL (4.8-10.8) H 02/07/25 17:59
Hgb Cancelled 02/08/25 16:23
Hct Cancelled 02/08/25 16:23
MCV 92.5 fL (80.0-94.0) 02/07/25 17:59
Plt Count 289 10^3/uL (130-400) 02/07/25 17:59
Absolute Neuts (auto) 6.7 10^3/uL (1.4-6.5) H 02/07/25 17:59
PT 13.4 Sec (11.4-14.6) 02/07/25 17:59
INR 0.99 02/07/25 17:59
APTT 76.2 Sec (23.4-35.0) H 02/08/25 03:04
Sodium 137 mmol/L (135-145) 02/08/25 03:04
Potassium 4.9 mmol/L (3.5-5.1) D 02/08/25 03:04
Chloride 107 mmol/L (98-107) 02/08/25 03:04
Carbon Dioxide 20 mmol/L (22-30) L 02/08/25 03:04
BUN 28 mg/dl (9-20) H 02/08/25 03:04
Creatinine 1.3 mg/dL (0.7-1.3) 02/08/25 03:04
Calcium 8.3 mg/dl (8.4-10.2) L 02/08/25 03:04
Total Bilirubin 1.2 mg/dl (0.2-1.3) 02/08/25 03:04
AST 159 U/L (17-59) H 02/08/25 03:04
ALT 107 U/L (0-50) H 02/08/25 03:04
Alkaline Phosphatase 91 U/L (38-126) 02/08/25 03:04
Assessment / Plan
-
This patient is a 74-year-old man with a history of GERD with an upper endoscopy that does not have evidence of esophagitis who was found in cardiac arrest. His hemoglobin has remained stable. For now would do the following;\\
- Continue IV PPI twice daily and if any bleeding would change to drip
- no evidence of gi bleeding currently
- LFts mildly increase and would expect them to go higher due to shock liver as he did have a cardiac arrest
- gerd already know and egd done in past, colonoscopy due in 2025 electively
no further input will sign off call with questions
-
-
Thank you for consultation and allowing me to participate in the patient's care. Please call the front end loader operator GI physician during the after hours with any questions or concerns.
[2025-02-08 08:53] LABS: Hematocrit 38.6 % (39.0-52.0)
[2025-02-08 08:54] LABS: APTT 82.6 Sec (23.4-35.0)
--- NOTE | 2025-02-08 09:16 | PTCARENOTE ---
report received, assessments per work list. patient initially sedated and nonresponsive. sedated, diprivan weaned to off. patient now alert, follows commands. moves arms and legs equally. nods appropriately. wrist restraints maintained for patient
safety. monitor sr, with avb and pvc's. right radial arterial arterial line with cuff correlation. ogt to LIS, coffee ground drainage. guzman draining beverley urine. abdomen soft, round. hypoactive bowel sounds. lungs with coarse breath sounds
bilaterally, ett to vent. suctions for small amount white bar sputum. resident and hospitalist in to evaluate patient. updated. family at bedside. updated with plan of care
--- NOTE | 2025-02-08 09:45 | CM ---
Patient seen at bedside with and daughter at bedside. Patient awake and on ventilator. Patient stated that patient lives with her in a 2 story home with no DME prior to admission. Patient confirmed Physician Dr. Tamar raymond
and they use [facility] in [place] for pharmacy needs. Patient daughter is a PT and is the primary contact per patient . CM will continue to follow for discharge planning needs.
Plan; pending assessments/medical treatment plan
--- NOTE | 2025-02-08 09:45 | W.PN.HOSP.TC ---
Today's Communication/Plan
-
renew drips
await cards
SBT to extubation
cont unasyn
trend troponins
likely needs ischemic eval at some point
follow CXR
Assessment / Plan
Assessment / Plan
pt is a 74 year old male
Cardiac Arrest--out of hospital--s/p 2 shocks via AED--CPR started by daughter (fractured ribs likely from that)--await cards/shot blaster/neuro input-- - Echo done in the ED with normal LVEF. Inferior / apical / septal hypokinesis. Moderate
MR--cont IV heparin/asa--may need ischemic eval--cont lopressor with parameters--troponin still trending upward--0.096 --> 18.7 this AM-- Follow serial troponin to peak-- CT head unremarkable.
VDRF--intubated in ED--pt awake--await shot blaster but likely SBT to extubation today--unasyn started by shot blaster (had N/V--? aspiration)--follow CXR
GERD with Heme Positive Stools--HGB stable--apprec GI--IV PPI BID--nothing further at this point
Essential Hypertension-- BP markedly elevated in the ED - but improved fairly quickly--was briefly on cardene drip
Multinodular Goiter0 - Noted on CT chest--TSH 8.74
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
DVT Prophylaxis: IV Heparin at present
Code Status: Full
Total Critical Care Time 33 minutes. I was immediately available to the patient and staff. I personally examined, reviewed labs, diagnostic images/reports, interpretations, treatment plans, discussed patient care with other providers and family
or caregivers (if patient is unable to make decisions), entered orders as appropriate and documented the medical record.
Anticipated Discharge: > 48 hours
Subjective/Interval History
-
Date of Service: February 08, 2025
pt wide awake
Objective Data
-
Labs:
Laboratory Results
02/07/25 02/07/25 02/08/25
22:23 22:59 03:04
Hgb Cancelled 13.3
Hct Cancelled 39.6
APTT 76.2 H
HCO3 Cancelled
Sodium 137
Potassium 4.9 D
Chloride 107
Carbon Dioxide 20 L
BUN 28 H
Creatinine 1.3
Glucose 156 H
Calcium 8.3 L
Total Bilirubin 1.2
AST 159 H
ALT 107 H
Alkaline Phosphatase 91
02/08/25 02/08/25 02/08/25
04:23 06:04 08:33
Hgb Cancelled 13.0
Hct Cancelled 38.6 L
APTT 82.6 H
HCO3 18.0 L
Sodium
Potassium
Chloride
Carbon Dioxide
BUN
Creatinine
Glucose
Calcium
Total Bilirubin
AST
ALT
Alkaline Phosphatase
02/08/25 02/08/25 02/08/25
10:23 15:00 16:23
Hgb Cancelled Pending Cancelled
Hct Cancelled Pending Cancelled
APTT Pending
HCO3
Sodium
Potassium
Chloride
Carbon Dioxide
BUN
Creatinine
Glucose
Calcium
Total Bilirubin
AST
ALT
Alkaline Phosphatase
Vital Signs:
max temp for 24 hours
02/08/25
02:45
Temp 99.1 F
Vital Signs
Temp Pulse Resp BP Pulse Ox
98.5 F 56 16 105/56 100
02/08/25 07:39 02/08/25 09:00 02/08/25 09:00 02/08/25 08:02 02/08/25 09:00
I&O
02/07/25 02/08/25 02/09/25
06:59 06:59 06:59
Intake Total 815.7 / 815.7
Output Total 923 / 923
Balance -107.3 / -107.3
Review of Systems
-
Unable to obtain full review of systems at this time due to: Patient Intubation
All other systems: Reviewed and negative (shakes head yes and no to questions)
Physical Exam
-
General: Well Developed, Well Nourished, No Apparent Distress and Intubated
HEENT: Normocephalic and Atraumatic
Respiratory: Clear to Auscultation; Negative Wheezes or Rhonchi
Cardiac: Regular Rhythm and S1/S2; Negative Murmur
GI: Soft, Nontender, Nondistended and Normal Bowel Sounds
Musculoskeletal: No Clubbing, No Cyanosis and No Edema
Neuro: Awake and Alert
Psych: Calm
--- NOTE | 2025-02-08 10:27 | PTCARENOTE ---
sedation off. patient awake and cooperative. placed on wean by RT. levophed weaned to off.
[2025-02-08] MEDS: UNASYN IV ×3 (10:46→21:03)
[2025-02-08 11:17] LABS: B.E. -3.8 mmol/L; HCO3 18.8 mmol/L (21-28); O2 Saturation % 99.3 % (94-98); PCO2 27 mmHg (35-48); PO2 161 mmHg (83-108); pH 7.45 (7.35-7.45)
--- NOTE | 2025-02-08 12:16 | PTCARENOTE ---
Addendum entered by Rima Urena RN 02/08/25 12:56:
medicated with morphine for rib discomfort per order. phone report given to electronic lab technician RN. awaiting flat sorter processor. family [email or web address]
Original Note:
patient extubated without issue to nasal cannula. OGT removed. voice hoarse. patient with no recollection of prior days events. lungs with coarse breath sounds. rib/sternum discomfort with coughing, activity. intesivist at bedside, updated. orders
opending. awaiting flat sorter processor evaluation. call handy in reach. family [email or web address]
[2025-02-08] MEDS: MORPHINE SULFATE 2 MG IV ×2 (12:37→15:20)
--- NOTE | 2025-02-08 12:38 | W.PN.CD ---
Today's Communication / Plan
-
No obvious exanguination.
Extubated with reasonable neurologic function.
Plan for cardiac catheterization to clarify anatomy, assess for reversible causes of arrest.
Impression / Plan
-
Impression/Plan: 74 y/o male with remote history of Hodgkin's lymphoma s/p mantle radiation (in his 20's), GERD with Schatzki's ring and HTN admitted as an OOH arrest with bystander CPR (daughter) and shockable rhythm, ROSC with EMS after 2
defibrillations.
#Out of hospital cardiac arrest with shockable rhythm
-Acute, threat to life.
-Initial EKG did NOT show any ST elevation.
-Given bystander CPR, the decision was made to manage medically until we could determine his mental status/neurologic recovery, with a plan to perform diagnostic coronary angiography to clarify his coronary anatomy and to assess for reversible
cause of cardiac arrest.
-Pretest probability of CAD is significant (Age, HTN, History of mantle radiation).
#Abnormal Troponin
-Acute.
-Trend = 0.096 --> 0.731 --> 5.470 --> 18.700.
-Basal to mid inferior/inferoseptal and apical septal hypokinesis (in the setting of incomplete RBBB + LAFB).
-Coronary angiography to clarify anatomy.
#Heme positive stool
-New diagnosis.
-Unclear severity.
-H/H .6.
-GI following.
#Hypertension
-Chronic, stable.
-Hypertensive in the ED. IV metoprolol given with improvement in HR and BP.
-Continue BP control with nicardipine/esmolol until we clarify coronary anatomy to determine best GDMT.
#Severe GERD and prior history of esophageal stricture
-Chronic, stable.
-GI following.
-PPI.
#Hx of Hodgkin's disease, 'chest radiation' and splenectomy per old records
-Radiation will complicate coronary atherosclerosis, intervention.
Critical Care Time = 37 minutes.
Subjective/Interval History:
Extubated to 4LNC this morning.
Weight stable.
Troponin up to 18.
TSH up to 8.7.
Lactate has normalized.
Renal function stable.
DATA:
Echocardiogram, 02/07/2025:
CONCLUSIONS
Normal left ventricular size with low normal left ventricular systolic function
Basal to mid inferior/inferoseptal and apical septal hypokinesis.
LV ejection fraction is 50-55% by visual assessment.
Mildly dilated right ventricle with low normal RV systolic function
Thickened mitral valve leaflets with mild, perhaps mild to moderate eccentric
mitral regurgitation
Trileaflet sclerotic aortic valve without stenosis. Trivial aortic
regurgitation
Mild tricuspid regurgitation
Estimated pulmonary artery pressure of 58-63 mmHg assuming a right atrial
pressure of 10-15 mmHg. The IVC is dilated and does not collapse.
No pericardial effusion.
No prior study available for comparison
CTA chest/abdomen/pelvis, 02/07/2025:
IMPRESSION:
1. No aortic aneurysm or dissection.
2. Minimally displaced anterolateral right fourth, fifth and sixth rib fractures.
3. Suspect diffuse enteritis/ileus.
4. Probably benign although indeterminate right renal lesions. Recommend outpatient workup with dedicated renal ultrasound.
CT Head, 02/07/2025:
IMPRESSION:
No acute intracranial abnormality noted.
Physical Exam
Vital Signs/Labs
Vital Signs
Temp Pulse Resp BP Pulse Ox
36.8 C 78 19 130/61 100
02/08/25 11:25 02/08/25 12:10 02/08/25 11:30 02/08/25 12:10 02/08/25 11:32
02/07/25 02/08/25 02/09/25
11:59 11:59 11:59
Actual Weight 91.8 kg
02/08/25 16:23
PT 13.4 Sec (11.4-14.6) 02/07/25 17:59
INR 0.99 02/07/25 17:59
APTT 82.6 Sec (23.4-35.0) H 02/08/25 08:33
Magnesium 2.0 mg/dl (1.6-2.3) 02/08/25 03:04
Triglycerides 84 mg/dl (10-149) 02/08/25 03:04
LDL Cholesterol, Calc 86 mg/dl 02/08/25 03:04
VLDL Cholesterol, Calc 16 mg/dl (0-30) 02/08/25 03:04
HDL Cholesterol 45 mg/dl 02/08/25 03:04
Free T4 0.68 ng/dl (0.78-2.19) L 02/07/25 17:59
02/07/25
17:59
Trc-A-Qmdwzdlffiz Pept 1070
LAB Results
02/07/25 02/07/25 02/07/25
17:59 20:50 20:50
Troponin I 0.096 H* 0.731 H* D Cancelled
02/08/25 02/08/25
03:04 08:33
Troponin I 5.470 H* D 18.700 H* D
Physical Exam
Constitutional: No acute distress and Comfortable
EENT: Anicteric and Moist mucous membranes
Cardiovascular: Rhythm & rate is regular, Pedal edema is absent, JVD pressure is normal, S1S2 is normal and Murmur/rub/gallop absent
Respiratory: Respiratory effort normal, Lungs clear to auscul., Wheeze Absent, Crackles Absent and Rhonchi Absent
GI: Soft, Distention absent, Flat, Non tender and Normal bowel sounds
Neuro/Psych: Alert
Data Reviewed
-
Date of Service: February 08, 2025
Medical Decision Making: Reviewed Test Results, Independent Historian Assessment, Test Interpretation and Review of Case with other Provider
EKG: Tracing Personally Visualized and interpreted and Report Reviewed by me
Echo: Report Reviewed by me
X-Ray/CT/US/MRI/NUC/PET: Image Personally Visualized and interpreted and Report Reviewed by me
Medical Tests (PFT, Pathology etc): Report Reviewed by me
Labs: Labs Reviewed by me
Old Records: Reviewed
[2025-02-08 12:42] LABS: Glucose - Point of Care 88 mg/dl (70-99)
[2025-02-08 14:44] LABS: Hematocrit 38.4 % (39.0-52.0); Hemoglobin 12.9 g/dL (13.0-18.0)
[2025-02-08 14:56] LABS: APTT 60.1 Sec (23.4-35.0)
[2025-02-08 15:12] LABS: Blood Urea Nitrogen 28 mg/dl (9-20); Calcium 8.2 mg/dl (8.4-10.2); Carbon Dioxide 21 mmol/L (22-30); Chloride 110 mmol/L (98-107); Estimated Creatinine Clearance 59 ml/min; Glucose 113 mg/dl (70-99); Potassium 4.5 mmol/L (3.5-5.1); Sodium 137 mmol/L (135-145); eGFR > 60.00
--- NOTE | 2025-02-08 15:47 | PTCARENOTE ---
heparin gtt on hold by pathology laboratory director, sent to pathology laboratory director. transport by pathology laboratory director staff
[2025-02-08 16:24] LABS: ACT-LR - POC 285 Seconds (116-155)
--- NOTE | 2025-02-08 16:49 | ITS.CL.ANGIO ---
Vegetable Tester - Angioplasty
Angioplasty
Procedure Report:
CARDIAC CATHETERIZATION REPORT
Date of Procedure: 02/08/2025
Referring: Tyler Wolff M.D.
INDICATION: [id number] cardiac arrest, non-ST elevation myocardial infarction.
PROCEDURE:
1. Left heart catheterization.
2. Coronary angiography.
3. Successful PCI of the mid RCA.
A total of 0 minutes of procedural/moderate sedation was utilized. An independent medical services manager was present to assist with and help manage the patient's level of consciousness and physiologic status.
ACCESS:
1. 6 Cambodian right common femoral artery using a modified Seldinger technique with a micropuncture kit under ultrasound guidance. Ultrasound image obtained.
CATHETERS:
1. 5 Cambodian JR4.
2. 5 Cambodian JL 4.
3. 6 Cambodian multipurpose guiding catheter.
HEMODYNAMIC DATA
Weight (kg): 91.6
AO (s/d/x, mmHg): 130/76/99
LV (s/x mmHg): 133/24
LEFT VENTRICULOGRAPHY: Not performed
CORONARY ANGIOGRAPHY
Dominance: Codominant.
Left Main: Normal size, bifurcating vessel. There is no coronary artery disease.
LAD: Normal size vessel giving rise to 1 significant diagonal before wrapping around the apex and supplying the distal half of the inferior interventricular septum. There is no coronary artery disease.
Ramus: Congenitally absent.
Circumflex: Normal size, nondominant vessel giving rise to 2 obtuse marginals. OM1 arises very high on the circumflex and supplies the majority of the lateral wall. OM 2 arises late on the circumflex and supplies the base of the inferior wall.
RCA: Small to medium size, codominant vessel with a downward origin. There is a total occlusion of the mid RCA. The distal RCA leading into the small PDA is small and somewhat diffusely diseased.
INTERVENTION(S)
1. Successful PCI of the mid RCA occlusion (Medtronic [place] Mullens 2.0 x 18 DAMARIS, postdilated with a 2.25 NC balloon throughout and a 2.5 NC balloon in the proximal margin) with reduction in stenosis to 0%, restoring ROBBIN-3 flow.
Narrative:
The decision was made to proceed with percutaneous coronary intervention. The diagnostic catheter was removed over a wire and a 6Fr multipurpose guiding catheter was advanced to the aortic root and seated in the right coronary artery. Additional
heparin was given and a Power Turn Flex wire was advanced into the distal vessel, though ultimately discovered to be in acute marginal. The 100% mid RCA lesion was predilated with a 2.0 x 12 semi-compliant balloon to 12 michael. The semi-compliant
balloon was removed. Angiography confirmed the return of ROBBIN-3 flow to the distal vessel. At this time, we redirected the wire into the distal RCA and administered nitroglycerin 100 mcg intracoronary with improvement in the coronary artery
caliber. A Medtronic Tello Mullens 2.0 x 18 drug-eluting stent was advanced. The stent was deployed at 12 atmospheres. The stent balloon was removed. A 2.25 x 12 noncompliant balloon was advanced into the stent and the stent was postdilated to 12
atmospheres. The noncompliant balloon was withdrawn and a 2.5 x 12 noncompliant balloon was advanced. The proximal stent margin was postdilated to 12 michael. The noncompliant balloon was removed. Angiography was performed in orthogonal views,
confirming good stent expansion and an excellent angiographic result, but also revealed that the distal vessel was diffusely diseased. The coronary wire was withdrawn and the guide was disengaged from the artery. The catheter was removed over a
standard J-wire.
Closure Device: 6 Cambodian Angio-Seal.
Radiation (mGy): 534.75
DAP (cm2.Gy): 37.6781
Fluoroscopy time (minutes): 8.9
CONCLUSIONS
1. Codominant circulation with the distal inferior interventricular septum supplied by a large, not wraparound LAD, a relatively small and diffusely diseased distal RCA and an acute occlusion of the mid RCA, status post successful PCI (Medtronic
Tello Mullens 2.0 x 18 DAMARIS, postdilated with a 2.25 NC balloon throughout and a 2.5 x 12 NC balloon in the proximal margin) with reduction in stenosis to 0%, restoring ROBIBN-3 flow.
2. Severely elevated filling pressures (LVEDP = 24 mmHg at 91.6 kg).
RECOMMENDATIONS:
1. Expectant management after cardiac catheterization via right common femoral approach.
2. Limited weight bearing on the right wrist for one week.
3. Dual antiplatelet therapy with aspirin and ticagrelor for at least 1 year, followed by aspirin indefinitely.
4. Aggressive secondary prevention with high-dose, high potency statin. Goal LDL <55.
5. OMT/GDMT as hemodynamics will tolerate.
6. Referral to cardiac rehab.
Copy to: Nickolas Akers M.D., Tyler Wolff M.D., Tamar Jimenez PA-C
Ajay Rowe DO, FACC, FACP
[2025-02-08 17:53] LABS: Glucose - Point of Care 95 mg/dl (70-99)
--- NOTE | 2025-02-08 18:02 | PTCARENOTE ---
patient received from manager lab. right groin dressing dry and intact. Doppler pulse unchanged from initial assessments. patient remains forgetful, poor recall. family at bedside. updated. roping machine tender to call and update. moist nonproductive cough.
call handy in reach. toilerating oral intake without signs aspiration
--- NOTE | 2025-02-08 20:15 | PTCARENOTE ---
Patient received lying in bed, awake, alert and oriented to person, place and year. Forgetful to events surrounding his hospitalization and some instructions given. Reorients easily. He is currently speaking with his parents on the phone. He is
without apparent signs of distress or discomfort. However, he is notably in pain when he coughs. C/o sternal discomfort most likely due to rib fractures. He denies offer of Morphine. Temp 100.6. Tylenol given prn for pain and temp. Respirations non
labored, sats 100% on RA. BBS with expiratory wheezes t/o, RML and RLL diminished. S1S2 regular. He is SR on CM with frequent pac's, BBB and 1st degree AVB. He denies CP or SOB, no dizziness. Right radial Duke leveled and zeroed. Good wave form and
good square wave. Right groin site soft without evidence of hematoma, dressing CDI. RLE pulses palpable, bilateral feet cool and dusky. Neurovascular checks per protocol, see worklist flowsheet. and son at bedside. Updated with patient clinical
status. Salazar catheter patent draining cloudy beverley urine. UO is borderline.
[2025-02-09] VITALS (20 sets, daily range): BP systolic 79–154; BP diastolic 42–75; BMI 30.8
--- NOTE | 2025-02-09 | PTCARENOTE ---
SBP soft in the 90s, MAP 58-65. UO remains low. Rene MECHANICAL FITTER aware. Patient continues to refuse offer of pain medication (Morphine) despite having rib discomfort with cough. RLE neurovascularly stable, right groin soft, dressing CDI. Rest of physical
assessment essentially unchanged. He continues to have frequent pac's, bigeminy and trigeminy pac's. No CP or SOB.
[2025-02-09] MEDS: LOPRESSOR IV (00:39)
[2025-02-09] MEDS: LEVOPHED 50 IV (01:50)
[2025-02-09] MEDS: UNASYN IV ×4 (03:59→21:00)
[2025-02-09] MEDS: NSS 1000 IV (03:59)
--- NOTE | 2025-02-09 04:00 | PTCARENOTE ---
Am labs drawn. Left lung is clear, right lung with scattered expiratory wheezes t/o. Continues with loose NPC, encouraged to splint chest with cough. VSS. Rest of physical assessment essentially unchanged.
[2025-02-09] MEDS: LEVOPHED 250 IV (04:01)
[2025-02-09 04:36] LABS: Hematocrit 34.2 % (39.0-52.0); Hemoglobin 11.3 g/dL (13.0-18.0); Mean Corpuscular Hgb 30.5 pg (27.0-31.0); Mean Corpuscular Volume 92.4 fL (80.0-94.0); Mean Platelet Volume 10.7 fL (7.4-10.4); Platelet Count 249 10^3/uL (130-400); Red Cell Dist. Width 15.2 % (11.5-14.5); White Blood Cell Count 13.1 10^3/uL (4.8-10.8)
[2025-02-09 04:53] LABS: ALT (SGPT) 85 U/L (0-50); AST (SGOT) 199 U/L (17-59); Albumin 3.1 g/dl (3.5-5.0); Alkaline Phosphatase 66 U/L (38-126); Blood Urea Nitrogen 32 mg/dl (9-20); Calcium 7.8 mg/dl (8.4-10.2); Carbon Dioxide 19 mmol/L (22-30); Chloride 109 mmol/L (98-107); Estimated Creatinine Clearance 59 ml/min; Glucose 104 mg/dl (70-99); HDL Cholesterol 38 mg/dl; LDL Cholesterol, Calculated 63 mg/dl; Potassium 4.2 mmol/L (3.5-5.1); Sodium 136 mmol/L (135-145); Total Bilirubin 1.1 mg/dl (0.2-1.3); Total Cholesterol 123 mg/dl (50-199); Total Protein 5.6 g/dl (6.3-8.2); Triglyceride 114 mg/dl (10-149); Very Low Density Lipoprotein 22 mg/dl (0-30); eGFR > 60.00
[2025-02-09] MEDS: TYLENOL 650 MG PO (06:01)
[2025-02-09] MEDS: LOPRESSOR 5 MG IV (06:04)
--- NOTE | 2025-02-09 07:07 | PTCARENOTE ---
Report given verbally to RN assuming careNayely. Questions answered.
--- NOTE | 2025-02-09 07:12 | W.PN.CD ---
Today's Communication / Plan
-
Repeat BCx.
Hold metoprolol.
Titrate pressors to keep MAP > 65 mmHg.
DAPT.
Monitor for outward signs of blood loss. Anemia progression could be due to dilution.
High dose, high potency statin.
Impression / Plan
-
Impression/Plan: 74 y/o male with remote history of Hodgkin's lymphoma s/p mantle radiation (in his 20's), GERD with Schatzki's ring and HTN admitted as an OOH arrest with bystander CPR (daughter) and shockable rhythm, ROSC with EMS after 2
defibrillations.
#Out of hospital cardiac arrest with shockable rhythm
-Acute, threat to life.
-Initial EKG did NOT show any ST elevation.
-Given bystander CPR, the decision was made to manage medically until we could determine his mental status/neurologic recovery, with a plan to perform diagnostic coronary angiography to clarify his coronary anatomy and to assess for reversible
cause of cardiac arrest.
-Occluded mRCA at cath, s/p PCI.
#NSTEMI
-Acute.
-Trend = 0.096 --> 0.731 --> 5.470 --> 18.700 --> 16.900 --> 40.300. I suspect that the troponin rise is due to reperfusion and liberation of troponin from ischemic myocardium.
-Basal to mid inferior/inferoseptal and apical septal hypokinesis with preserved LVEF (50-55%).
-Occluded mRCA at cath, s/p PCI (Medtronic Tello [place] 2.0 x 18 DAMARIS, post dilated with a 2.25 NCB throughout, 2.5 NCB in proximal margin) with reduction in stenosis to 0%, restoring ROBBIN III flow to diffusely diseased distal RCA/small RPDA.
-DAPT with aspirin and ticagrelor x12 months, followed by aspirin indefinitely.
-Hold further beta suzy in the context of hypotension, possibly developing sepsis.
#Fever/Bacteremia
-Acute, new diagnosis.
-BCx is positive for GPC's in clusters in 1 of 2.
-Notable that DBP's are low (in the context of elevated filling pressures), implying decreased SVR. MAP's 50-60's.
-The patient is volume resuscitated (LVEDP 24 mmHg). Use vasopressors to keeep MAP > 65 mmHg.
-Repeat BCx's today.
-Follow up BCx speciation/sensitivities.
-Continue ampicillin/sulbactam.
#Anemia
-New diagnosis.
-Reportedly heme positive stool.
-UA shows 4+ hematuria with 100 RBCs/HPF.
-Hbg 13.0 --> 12.9 --> 11.3.
-Monitor for outward signs of bleeding.
#Hypertension
-Chronic, stable.
-Hypertensive in the ED, now relatively hypotensive.
#Severe GERD and prior history of esophageal stricture
-Chronic, stable.
-GI following.
-PPI.
#Hx of Hodgkin's disease, 'chest radiation' and splenectomy per old records
-Radiation will complicate coronary atherosclerosis, intervention.
Critical Care Time = 42 minutes.
Subjective/Interval History:
Cardiac catheterization yesterday showed an occluded mRCA. PCI restored ROBBIN III flow to the dRCA, which was likely in spasm/diffusely diseased.
The patient is somewhat forgetful, no doubt a sequelae of his cardiac arrest.
Tmax 38.1 overnight, APAP given.
Mild hypotension (85/42 mmHg) overnight, improved this morning.
A-line BP's are questionable - diastolic pressures in the 30-40's. Mean pressures in the 50-60's this morning.
BCx from 02/07/2025 positive in 1 (preliminary GPC in clusters)
Weight is up 2.7 kg from yesterday (91.8 --> 94.5).
LVEDP 24 mmHg at the time of cath.
EKG shows NSR with frequent PAC's.
Hbg dropped 1.6 grams (12.9 --> 11.3) overnight.
DATA:
Echocardiogram, 02/07/2025:
CONCLUSIONS
Normal left ventricular size with low normal left ventricular systolic function
Basal to mid inferior/inferoseptal and apical septal hypokinesis.
LV ejection fraction is 50-55% by visual assessment.
Mildly dilated right ventricle with low normal RV systolic function
Thickened mitral valve leaflets with mild, perhaps mild to moderate eccentric
mitral regurgitation
Trileaflet sclerotic aortic valve without stenosis. Trivial aortic
regurgitation
Mild tricuspid regurgitation
Estimated pulmonary artery pressure of 58-63 mmHg assuming a right atrial
pressure of 10-15 mmHg. The IVC is dilated and does not collapse.
No pericardial effusion.
No prior study available for comparison
CTA chest/abdomen/pelvis, 02/07/2025:
IMPRESSION:
1. No aortic aneurysm or dissection.
2. Minimally displaced anterolateral right fourth, fifth and sixth rib fractures.
3. Suspect diffuse enteritis/ileus.
4. Probably benign although indeterminate right renal lesions. Recommend outpatient workup with dedicated renal ultrasound.
CT Head, 02/07/2025:
IMPRESSION:
No acute intracranial abnormality noted.
Cardiac Catheterization/PCI, 02/08/2025:
CONCLUSIONS
1. Codominant circulation with the distal inferior interventricular septum supplied by a large, not wraparound LAD, a relatively small and diffusely diseased distal RCA and an acute occlusion of the mid RCA, status post successful PCI (Medtronic
[place] 2.0 x 18 DAMARIS, postdilated with a 2.25 NC balloon throughout and a 2.5 x 12 NC balloon in the proximal margin) with reduction in stenosis to 0%, restoring ROBBIN-3 flow.
2. Severely elevated filling pressures (LVEDP = 24 mmHg at 91.6 kg).
Physical Exam
Vital Signs/Labs
Vital Signs
Temp Pulse Resp BP Pulse Ox
37.7 C 71 19 117/54 97
02/09/25 03:48 02/09/25 06:30 02/09/25 06:30 02/09/25 06:04 02/09/25 06:30
02/07/25 02/08/25 02/09/25
11:59 11:59 11:59
Actual Weight 91.8 kg 94.5 kg
02/09/25 04:06
02/09/25 04:06
PT 13.4 Sec (11.4-14.6) 02/07/25 17:59
INR 0.99 02/07/25 17:59
APTT Cancelled 02/08/25 21:00
Magnesium 2.0 mg/dl (1.6-2.3) 02/09/25 04:06
Triglycerides 114 mg/dl (10-149) 02/09/25 04:06
LDL Cholesterol, Calc 63 mg/dl 02/09/25 04:06
VLDL Cholesterol, Calc 22 mg/dl (0-30) 02/09/25 04:06
HDL Cholesterol 38 mg/dl 02/09/25 04:06
Free T4 0.68 ng/dl (0.78-2.19) L 02/07/25 17:59
02/07/25
17:59
Jbm-B-Brshootlomd Pept 1070
LAB Results
02/07/25 02/07/25 02/07/25
17:59 20:50 20:50
Troponin I 0.096 H* 0.731 H* D Cancelled
02/08/25 02/08/25 02/08/25
03:04 08:33 14:27
Troponin I 5.470 H* D 18.700 H* D 16.900 H*
02/09/25
04:06
Troponin I 40.300 H*
Physical Exam
Constitutional: No acute distress and Comfortable
EENT: Anicteric and Moist mucous membranes
Cardiovascular: Rhythm & rate is regular, Pedal edema is absent, JVD pressure is normal, S1S2 is normal and Murmur/rub/gallop absent
Respiratory: Respiratory effort normal, Lungs clear to auscul., Wheeze Absent, Crackles Absent and Rhonchi Absent
GI: Soft, Distention absent, Flat, Non tender and Normal bowel sounds
Neuro/Psych: Alert and Oriented (Still somewhat foggy but improved from yesterday.)
Other: Cath Site (Right femoral access site is C/D/I.)
Data Reviewed
-
Date of Service: February 09, 2025
Medical Decision Making: Reviewed Test Results, Tests Ordered, Independent Historian Assessment and Test Interpretation
EKG: Tracing Personally Visualized and interpreted and Report Reviewed by me
Echo: Report Reviewed by me
X-Ray/CT/US/MRI/NUC/PET: Image Personally Visualized and interpreted and Report Reviewed by me
Medical Tests (PFT, Pathology etc): Image Personally Visualized and interpreted and Report Reviewed by me
Labs: Labs Reviewed by me and Labs Ordered by me
Old Records: Reviewed
[2025-02-09] MEDS: BRILINTA 90 MG PO ×2 (07:36→20:01)
[2025-02-09] MEDS: LOW STRENGTH ASPIRIN 81 MG TUBE (07:36)
[2025-02-09] MEDS: PROTONIX IV 40 MG IV ×2 (07:36→20:01)
[2025-02-09] MEDS: NSS (PRESERVATIVE FREE) 10 ML IV ×2 (07:36→20:02)
[2025-02-09] MEDS: MIRALAX 17 GRAMS TUBE (07:36)
[2025-02-09 07:44] LABS: Glucose - Point of Care 83 mg/dl (70-99)
[2025-02-09] MEDS: MORPHINE SULFATE 2 MG IV ×2 (07:54→13:45)
--- NOTE | 2025-02-09 08:23 | W.PN.INTV ---
Today's Communication / Plan
Recommendations
Continue IV antibiotic for now
Repeat H&H in the a.m.
Repeat TSH and FT4 in the am
Continue ICU level care
Assessment
-
74-year-old male presents to the emergency room status post cardiac arrest.
Cath : CONCLUSIONS
1. Codominant circulation with the distal inferior interventricular septum supplied by a large, not wraparound LAD, a relatively small and diffusely diseased distal RCA and an acute occlusion of the mid RCA, status post successful PCI ([employer]
[place] 2.0 x 18 DAMARIS, postdilated with a 2.25 NC balloon throughout and a 2.5 x 12 NC balloon in the proximal margin) with reduction in stenosis to 0%, restoring ROBBIN-3 flow.
2. Severely elevated filling pressures (LVEDP = 24 mmHg at 91.6 kg).
Echo 02/07/2025 showed hypokinesis in the apical septal + mid inferior/inferoseptal regions with preserved LVEF at 50-55% with borderline low RV systolic function and mild�moderate eccentric MR with pulmonary hypertension
CTA chest/abdomen/pelvis, 02/07/2025:
IMPRESSION:
1. No aortic aneurysm or dissection.
2. Minimally displaced anterolateral right fourth, fifth and sixth rib fractures.
3. Suspect diffuse enteritis/ileus.
4. Probably benign although indeterminate right renal lesions. Recommend outpatient workup with dedicated renal ultrasound.
CT Head, 02/07/2025:
IMPRESSION:
No acute intracranial abnormality noted.
RECOMMENDATIONS:
#s/p Cardiac arrest out of the hospital
-Troponin trend = 0.096 --> 0.731 --> 5.470 --> 18.700-->16.9-->40.3; second rise likely secondary to cardiac cath
-Updated EKG today: ATRIAL FIBRILLATION WITH A COMPETING JUNCTIONAL PACEMAKER. LEFT AXIS DEVIATION
-s/p cardiac cath on 02/08/2025; results above
-Required Levophed briefly last night due to blood pressure eventually Levophed weaned off
-Dual antiplatelet therapy : continue Brilinta 90 mg twice daily with 81 mg daily aspirin for 1 year, followed by aspirin indefinitely
-Aggressive secondary pension with high-dose hypertensive statin with goal LDL<55; started on Lipitor 40 mg by cardiology
-Patient will need cardiac rehab for full recovery
-Patient breathing without any distress on room air; was extubated yesterday
-Patient eating and drinking routinely; will discontinue IV fluids
# New onset A-fib
-Patient had a brief run of A-fib with heart rate of 80s in the morning however went spontaneously into normal sinus.
# GERD with heme positive stools
-History of esophageal stricture
-Monitor H&H; current 11.3/34.2; repeat in the a.m.
-IV PPI twice daily; if hemoglobin continues to drop change PPI to drip
-Transfuse if needed to keep Hb>8g/dL
# Transaminitis
-Likely secondary to hypoperfusion due to cardiac arrest
# Leukocytosis
-Continue to trend; given fevers overnight likely secondary to pneumonia versus less likely bacteremia
-Blood culture + for gram-positive cocci in clusters--coag neg; likely contamination
-Continue Unasyn for now
# Mild hyperglycemia; likely secondary to stress
-Insulin sliding scale
# Essential hypertension
-Continue to monitor blood pressure; currently stable and patient is off nicardipine drip
# Hypothyroidism
# History of multinodular goiter; noted on CT chest
-TSH mildly elevated with low free T4
-Hold on for consideration of adding Synthroid
-Recheck TSH + free T4 tomorrow
# History of Hodgkin's disease
-History of mantle radiation in his 20s
DVT prophylaxis: Patient on dual antiplatelet therapy
GI prophylaxis: Patient on IV PPI twice daily
Continue ICU level care.
Subjective Dataa
Subjective Data
Date of Service:
Date of Service: February 09, 2025
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
Subjective:
Patient evaluated in the a.m. Heart rate 71, blood pressure 117/54, respiratory rate 19, temperature 99.8, oxygen saturation 97% on room air. Patient required Levophed briefly overnight before weaning off; required Levophed again to keep MAP> 65
around 9 AM. Offers no new complaints. Specifically denies chest pain and shortness of breath.
Review of Systems
General: Fever (02/08/25 20:00 100.6)
Cardiopulmonary: Cough (n)
GI: Abdominal Pain (n)
Neuro: Headache (n) and Dizziness (n)
Objective Data
Data Reviewed
Vital Signs / I&O / Oxygen:
Vital Signs
Temp Pulse Resp BP Pulse Ox
99.8 F 71 19 117/54 97
02/09/25 07:39 02/09/25 06:30 02/09/25 06:30 02/09/25 06:04 02/09/25 06:30
Intake and Output
02/08/25 02/09/25 02/10/25
06:59 06:59 06:59
Intake Total 815.7 / 941.0 4124.5 / 4124.5
Output Total 923 / 953 1041 / 1041
Balance -107.3 / -12.0 3083.5 / 3083.5
Physical Exam
General: Comfortable
Cardiovascular: S1-S2 and Irregular Rhythm
Respiratory: Clear and Non-Labored Respirations
GI: Soft, Non Distended, Non Tender and Other (guzman)
Neurology: Awake, Alert and Oriented
Skin: Warm and Dry
Labs/Micro/Reports
Lab Data
02/09/25 04:06
02/09/25 04:06
Laboratory Results
02/08/25 02/08/25 02/08/25
08:33 10:58 11:06
APTT 82.6 H
pH Cancelled 7.45
pCO2 Cancelled 27 L
pO2 Cancelled 161 H
HCO3 Cancelled 18.8 L
O2 Delivery Level Cancelled
02/08/25 02/08/25
14:27 21:00
APTT 60.1 H Cancelled
pH
pCO2
pO2
HCO3
O2 Delivery Level
Microbiology
02/07/25 18:01 Blood/Venous Blood Culture - Preliminary
No Growth in 24 hours- Final report to follow
02/07/25 18:01 Blood/Venous Blood Culture - Preliminary
Positive culture in progress
02/07/25 18:01 Blood/Venous Gram Stain - Preliminary
02/07/25 18:00 Nasal Swab Influenza Types A & B (OANH) - Final
Negative for Influenza A & B, NAAT
Negative results must be combined with clinical observations
and patient history.
Nucleic Acid Amplification test (NAAT)performed on the
[employer] platform.
--- NOTE | 2025-02-09 08:47 | PTCARENOTE ---
Addendum entered by Rima Urena RN 02/09/25 09:30:
banking management consulting manager,hospitalist at bedside. discussed hypotension post Lopressor, volume status. levophed resumed for MAP 58. blood cultures sent. daughter updated on phone
Original Note:
report received, assessments per work list. oriented but forgetful. medicated with morphine per patient request as pain with cough not managed with tylenol. monitor nsr with frequent pac. short self limited afib noted. right radial arterial line
with adequate waveform, blood return. hypotensive per period post 0600 lopressor. lungs with coarse breath sounds, expiratory wheezes. beverley urine output by guzman. generalized anasarca. abdomen soft, obese with hyperactive bowel sounds. tolerating
oral intake. call handy in reach
--- NOTE | 2025-02-09 09:02 | CM ---
Patient extubated seen at bedside with physician in ICU. Patient hoarse sounding but interactive and smiling. Plan for pt/ot assessment. CM will continue to follow for discharge planning needs.
Plan; home with VN vs SNF pending updated functional assessment
--- NOTE | 2025-02-09 09:05 | W.PN.HOSP.TC ---
Today's Communication/Plan
-
keep in ICU
PT/OT/OOB
cont unasyn
repeat blood cultures until clear
Assessment / Plan
Assessment / Plan
pt is a 74 year old male
Cardiac Arrest--out of hospital--s/p 2 shocks via AED--CPR started by daughter (fractured ribs from that)--apprec cards/engraver steel plate/neuro input-- - Echo done in the ED with normal LVEF. Inferior/apical/septal hypokinesis/Moderate MR--cont IV
heparin/asa---s/p cardiac cath with Codominant circulation with the distal inferior interventricular septum supplied by a large, not wraparound LAD, a relatively small and diffusely diseased distal RCA and an acute occlusion of the mid RCA, status
post successful PCI --cont lopressor with parameters--troponin still trending upward--0.096, 18.7, 40-- Follow serial troponin to peak-- CT head unremarkable.
VDRF--intubated in ED, extubated--pt awake--unasyn started by engraver steel plate (had N/V--? aspiration)--follow CXR--blood cultures positive for gm positive cocci, identification not back--repeat until clear
GERD with Heme Positive Stools--HGB stable--apprec GI--IV PPI BID--nothing further at this point
Essential Hypertension-- BP markedly elevated in the ED - but improved fairly quickly--was briefly on cardene drip
Multinodular Goiter - Noted on CT chest--TSH 8.74
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
DVT Prophylaxis: IV Heparin at present
Code Status: Full
would keep in ICU today
Anticipated Discharge: > 48 hours
Subjective/Interval History
-
Date of Service: February 09, 2025
pt does not remember us from yesterday
Objective Data
-
Labs:
Laboratory Results
02/09/25
04:06
WBC 13.1 H
Hgb 11.3 L
Hct 34.2 L
Plt Count 249
Sodium 136
Potassium 4.2
Chloride 109 H
Carbon Dioxide 19 L
BUN 32 H
Creatinine 1.1
Glucose 104 H
Calcium 7.8 L
Total Bilirubin 1.1
AST 199 H
ALT 85 H
Alkaline Phosphatase 66
Vital Signs:
max temp for 24 hours
02/08/25
20:15
Temp 100.6 F H
Vital Signs
Temp Pulse Resp BP Pulse Ox
99.8 F 71 19 117/54 97
02/09/25 07:39 02/09/25 06:30 02/09/25 06:30 02/09/25 06:04 02/09/25 06:30
I&O
02/08/25 02/09/25 02/10/25
06:59 06:59 06:59
Intake Total 815.7 / 941.0 4124.5 / 4124.5
Output Total 923 / 953 1041 / 1041
Balance -107.3 / -12.0 3083.5 / 3083.5
Review of Systems
-
All other systems: Reviewed and negative
Cardiac: Reports Chest Pain (from rib fractures)
Physical Exam
-
General: Well Developed, Well Nourished and No Apparent Distress
HEENT: Normocephalic and Atraumatic; Negative Oxygen
Respiratory: Clear to Auscultation; Negative Wheezes or Rhonchi
Cardiac: Irregular Rhythm
GI: Soft, Nontender, Nondistended and Normal Bowel Sounds
Musculoskeletal: No Clubbing and No Cyanosis; Negative No Edema (trace edema bilaterally)
Skin: Warm
Neuro: Awake
Psych: Calm
[2025-02-09 12:07] LABS: Glucose - Point of Care 116 mg/dl (70-99)
--- NOTE | 2025-02-09 12:56 | PTCARENOTE ---
patient reassessed, breath sounds unchanged. levophed wean per work list, assisted oob to chair with 2 staff and rolling walker. generalized weakness but tolerated transfer without pain or dizziness. using the IS independently and frequently. call
handy in reach, family at bedside
[2025-02-09 14:45] LABS: ACT-LR - POC > 397 Seconds (116-155)
--- NOTE | 2025-02-09 15:44 | PTCARENOTE ---
Addendum entered by Rima Urena RN 02/09/25 16:31:
guzman removed per nursing protocol, urinal within reach
Original Note:
tolerated oob to chairX2 hours. levophed weaned to off, coughing productively thick bar sputum.
[2025-02-09 16:51] LABS: Glucose - Point of Care 103 mg/dl (70-99)
[2025-02-09] MEDS: LIPITOR 40 MG PO (17:11)
--- NOTE | 2025-02-09 19:20 | PTCARENOTE ---
On assessment pt AAOx3, c/o rib pain but tolerable, forgetful at times, SR with PACs on the monitor, 95%RA, no BM today, voiding in urinal, R radial Jason intact and zeroed, call handy in reach
[2025-02-09] MEDS: DUONEB 3 ML INH (20:09)
[2025-02-09 21:54] LABS: Glucose - Point of Care 94 mg/dl (70-99)
--- NOTE | 2025-02-09 22:42 | PTCARENOTE ---
Jason removed, RESTAURANT SERVER made aware
--- NOTE | 2025-02-09 23:39 | PTCARENOTE ---
pt tolerated removal of Jason, cuff BP 124/63, call handy in reach
[2025-02-10] VITALS (18 sets, daily range): BP systolic 93–158; BP diastolic 46–89; PULSE 89–90; O2SAT 96–97; BMI 31.0
[2025-02-10] MEDS: UNASYN IV ×4 (04:26→20:56)
--- NOTE | 2025-02-10 04:31 | PTCARENOTE ---
no changes from prior assessment, call handy in reach
[2025-02-10 04:52] LABS: Hematocrit 36.6 % (39.0-52.0); Hemoglobin 12.2 g/dL (13.0-18.0); Mean Corp Hgb Conc. 33.3 g/dL (33.0-37.0); Mean Corpuscular Volume 92.9 fL (80.0-94.0); Mean Platelet Volume 10.4 fL (7.4-10.4); Platelet Count 269 10^3/uL (130-400); Red Blood Cell Count 3.94 10^6/uL (4.70-6.10); Red Cell Dist. Width 15.3 % (11.5-14.5); White Blood Cell Count 12.3 10^3/uL (4.8-10.8)
[2025-02-10 05:24] LABS: ALT (SGPT) 73 U/L (0-50); AST (SGOT) 139 U/L (17-59); Albumin 3.5 g/dl (3.5-5.0); Alkaline Phosphatase 90 U/L (38-126); Blood Urea Nitrogen 34 mg/dl (9-20); Calcium 8.8 mg/dl (8.4-10.2); Carbon Dioxide 21 mmol/L (22-30); Chloride 109 mmol/L (98-107); Estimated Creatinine Clearance 62 ml/min; Glucose 104 mg/dl (70-99); Magnesium 2.3 mg/dl (1.6-2.3); Potassium 4.4 mmol/L (3.5-5.1); Sodium 138 mmol/L (135-145); Total Bilirubin 1.6 mg/dl (0.2-1.3); Total Protein 6.4 g/dl (6.3-8.2); Triglycerides 123 mg/dl (10-149); eGFR > 60.00
[2025-02-10 06:25] LABS: Free T4 0.98 ng/dl (0.78-2.19)
[2025-02-10] MEDS: DUONEB 3 ML INH ×2 (07:32→19:23)
--- NOTE | 2025-02-10 07:32 | W.PN.CD ---
Today's Communication / Plan
-
Maintain current therapy.
Keep MAP > 65 mmHg. Continue abx.
Check LE duplex.
H/H stable. Continue DAPT.
As BP stabilizes, we will look to restart beta suzy.
LVEF > 40% - no obligatory role for ACEI/ARB/ARNi.
Continue high dose, high potency statin.
Given reversible cause of OOH arrest, I do not see a role for secondary prevention ICD.
Furosemide 40 mg IV x1 and monitor.
Impression / Plan
-
Impression/Plan: 74 y/o male with remote history of Hodgkin's lymphoma s/p mantle radiation (in his 20's), GERD with Schatzki's ring and HTN admitted as an OOH arrest with bystander CPR (daughter) and shockable rhythm, ROSC with EMS after 2
defibrillations.
#Out of hospital cardiac arrest with shockable rhythm
-Acute, threat to life.
-Initial EKG did NOT show any ST elevation.
-Given bystander CPR, the decision was made to manage medically until we could determine his mental status/neurologic recovery, with a plan to perform diagnostic coronary angiography to clarify his coronary anatomy and to assess for reversible
cause of cardiac arrest.
-Occluded mRCA at cath, s/p PCI.
#NSTEMI
-Acute.
-Trend = 0.096 --> 0.731 --> 5.470 --> 18.700 --> 16.900 --> 40.300 --> 17.6. I suspect that the troponin rise is due to reperfusion and liberation of troponin from ischemic myocardium.
-Basal to mid inferior/inferoseptal and apical septal hypokinesis with preserved LVEF (50-55%).
-Occluded mRCA at cath, s/p PCI ([employer]tronic [place] 2.0 x 18 DAMARIS, post dilated with a 2.25 NCB throughout, 2.5 NCB in proximal margin) with reduction in stenosis to 0%, restoring ROBBIN III flow to diffusely diseased distal RCA/small RPDA.
-DAPT with aspirin and ticagrelor x12 months, followed by aspirin indefinitely.
-As BP stabilizes, we will look to restart beta suzy.
-No role for ACEI/ARB/ARNi given LVEF > 40%.
-LVEDP elevated at cath. Furosemide 40 mg IV x1 and monitor.
#Fever/Bacteremia
-Acute, new diagnosis.
-BCx is positive for coag negative staff.
-UA from 02/07/2025 is positive, but UCx is negative.
-Notable that DBP's are low (in the context of elevated filling pressures), implying decreased SVR. MAP's 50-60's, responsive to norepinephrine.
-The patient is volume resuscitated (LVEDP 24 mmHg). Use vasopressors to keeep MAP > 65 mmHg.
-Repeat BCx's show NGTD.
-Coag negative staph is almost always a contaminant, though the patient did have fever and distributive hypotension, making the situation more complicated.
-Continue ampicillin/sulbactam until the next set of cultures have more definitive data.
-Fever may be due to atelectasis from rib fractures, possibly VTE. Check LE duplex.
-Hypotension could be due to vasoplegia from recent OOH arrest now recovered.
#Anemia
-New diagnosis.
-Reportedly heme positive stool.
-UA shows 4+ hematuria with 100 RBCs/HPF.
-Hbg 13.0 --> 12.9 --> 11.3 --> 12.2.
-Monitor for outward signs of bleeding.
#Hypertension
-Chronic, stable.
-Hypertensive in the ED.
#Severe GERD and prior history of esophageal stricture
-Chronic, stable.
-GI following.
-PPI.
#Hx of Hodgkin's disease, 'chest radiation' and splenectomy per old records
-Radiation will complicate coronary atherosclerosis, intervention.
Critical Care Time = 38 minutes.
Subjective/Interval History:
Intermittently required norepinephrine 2 mcg/kg/min, off since 14:00 yesterday.
BP now normal to mildly hypertensive.
Weight up and additional 0.8 kg (94.5 --> 95.3).
Afebrile since 02/08/2025 @ 20:15.
BCx shows Coag negative staphylococcus.
DATA:
Echocardiogram, 02/07/2025:
CONCLUSIONS
Normal left ventricular size with low normal left ventricular systolic function
Basal to mid inferior/inferoseptal and apical septal hypokinesis.
LV ejection fraction is 50-55% by visual assessment.
Mildly dilated right ventricle with low normal RV systolic function
Thickened mitral valve leaflets with mild, perhaps mild to moderate eccentric
mitral regurgitation
Trileaflet sclerotic aortic valve without stenosis. Trivial aortic
regurgitation
Mild tricuspid regurgitation
Estimated pulmonary artery pressure of 58-63 mmHg assuming a right atrial
pressure of 10-15 mmHg. The IVC is dilated and does not collapse.
No pericardial effusion.
No prior study available for comparison
CTA chest/abdomen/pelvis, 02/07/2025:
IMPRESSION:
1. No aortic aneurysm or dissection.
2. Minimally displaced anterolateral right fourth, fifth and sixth rib fractures.
3. Suspect diffuse enteritis/ileus.
4. Probably benign although indeterminate right renal lesions. Recommend outpatient workup with dedicated renal ultrasound.
CT Head, 02/07/2025:
IMPRESSION:
No acute intracranial abnormality noted.
Cardiac Catheterization/PCI, 02/08/2025:
CONCLUSIONS
1. Codominant circulation with the distal inferior interventricular septum supplied by a large, not wraparound LAD, a relatively small and diffusely diseased distal RCA and an acute occlusion of the mid RCA, status post successful PCI ([employer]
T[place] 2.0 x 18 DMAARIS, postdilated with a 2.25 NC balloon throughout and a 2.5 x 12 NC balloon in the proximal margin) with reduction in stenosis to 0%, restoring ROBBIN-3 flow.
2. Severely elevated filling pressures (LVEDP = 24 mmHg at 91.6 kg).
Physical Exam
Vital Signs/Labs
Vital Signs
Temp Pulse Resp BP Pulse Ox
36.9 C 83 17 134/69 94
02/10/25 03:30 02/10/25 07:00 02/10/25 07:00 02/10/25 07:00 02/10/25 07:00
02/08/25 02/09/25 02/10/25
11:59 11:59 11:59
Actual Weight 91.8 kg 94.5 kg 95.3 kg
02/10/25 04:25
02/10/25 04:25
PT 13.4 Sec (11.4-14.6) 02/07/25 17:59
INR 0.99 02/07/25 17:59
APTT Cancelled 02/08/25 21:00
Magnesium 2.3 mg/dl (1.6-2.3) 02/10/25 04:25
Triglycerides 123 mg/dl (10-149) 02/10/25 04:25
LDL Cholesterol, Calc 63 mg/dl 02/09/25 04:06
VLDL Cholesterol, Calc 22 mg/dl (0-30) 02/09/25 04:06
HDL Cholesterol 38 mg/dl 02/09/25 04:06
Free T4 0.98 ng/dl (0.78-2.19) 02/10/25 04:25
02/07/25
17:59
Lau-S-Kbwtnhwfopu Pept 1070
LAB Results
02/07/25 02/07/25 02/07/25
17:59 20:50 20:50
Troponin I 0.096 H* 0.731 H* D Cancelled
02/08/25 02/08/25 02/08/25
03:04 08:33 14:27
Troponin I 5.470 H* D 18.700 H* D 16.900 H*
02/09/25 02/10/25
04:06 04:25
Troponin I 40.300 H* 17.600 H*
Physical Exam
Constitutional: No acute distress and Comfortable
EENT: Anicteric and Moist mucous membranes
Cardiovascular: Rhythm & rate is regular, Pedal edema is absent, JVD pressure is normal, S1S2 is normal and Murmur/rub/gallop absent
Respiratory: Respiratory effort normal
GI: Soft, Distention absent, Flat, Non tender and Normal bowel sounds
Other: Cath Site (Right femoral access site is C/D/I.)
Data Reviewed
-
Date of Service: February 10, 2025
Medical Decision Making: Reviewed Test Results, Independent Historian Assessment and Test Interpretation
EKG: Tracing Personally Visualized and interpreted and Report Reviewed by me
Echo: Report Reviewed by me
X-Ray/CT/US/MRI/NUC/PET: Image Personally Visualized and interpreted and Report Reviewed by me
Medical Tests (PFT, Pathology etc): Image Personally Visualized and interpreted and Report Reviewed by me
Labs: Labs Reviewed by me
Old Records: Reviewed
[2025-02-10 08:04] LABS: Glucose - Point of Care 96 mg/dl (70-99)
--- NOTE | 2025-02-10 08:13 | W.PN.INTV ---
Today's Communication / Plan
Recommendations
Transfer out of ICU
Continue cholesterol lowering diet
Repeat labs in the a.m.
Will need cardiac rehab
Assessment
-
74-year-old male presents to the emergency room status post cardiac arrest.
Cath : CONCLUSIONS
1. Codominant circulation with the distal inferior interventricular septum supplied by a large, not wraparound LAD, a relatively small and diffusely diseased distal RCA and an acute occlusion of the mid RCA, status post successful PCI ([employer]
[place] 2.0 x 18 DAMARIS, postdilated with a 2.25 NC balloon throughout and a 2.5 x 12 NC balloon in the proximal margin) with reduction in stenosis to 0%, restoring ROBBIN-3 flow.
2. Severely elevated filling pressures (LVEDP = 24 mmHg at 91.6 kg).
Echo 02/07/2025 showed hypokinesis in the apical septal + mid inferior/inferoseptal regions with preserved LVEF at 50-55% with borderline low RV systolic function and mild�moderate eccentric MR with pulmonary hypertension
CTA chest/abdomen/pelvis, 02/07/2025:
IMPRESSION:
1. No aortic aneurysm or dissection.
2. Minimally displaced anterolateral right fourth, fifth and sixth rib fractures.
3. Suspect diffuse enteritis/ileus.
4. Probably benign although indeterminate right renal lesions. Recommend outpatient workup with dedicated renal ultrasound.
CT Head, 02/07/2025:
IMPRESSION:
No acute intracranial abnormality noted.
RECOMMENDATIONS:
#s/p Cardiac arrest out of the hospital
-Troponin trend = 0.096 --> 0.731 --> 5.470 --> 18.700-->16.9-->40.3-->17.6; second rise likely secondary to cardiac cath
-s/p cardiac cath on 02/08/2025; results above
-Levophed weaned off
-Dual antiplatelet therapy : continue Brilinta 90 mg twice daily with 81 mg daily aspirin for 1 year, followed by aspirin indefinitely
-Aggressive secondary pension with high-dose hypertensive statin with goal LDL<55; started on Lipitor 40 mg by cardiology
-Patient will need cardiac rehab for full recovery
-Patient breathing without any distress on room air and tolerated diet
-CT chest on 02/07 with patchy opacification in the medial left lower lobe- empirically started antibiotics with Unasyn on 02/08
# New onset A-fib
-Patient had a brief run of A-fib with heart rate of 80s on 02/08 however went spontaneously into normal sinus.
# GERD with heme positive stools
-Hb stable
-History of esophageal stricture
-Monitor H&H; current 12.2/36.6; repeat in the a.m.
-IV PPI twice daily; if hemoglobin continues to drop change PPI to drip
-Transfuse if needed to keep Hb>8g/dL
-Trend BUN
# Transaminitis
-Likely secondary to hypoperfusion due to cardiac arrest
# Leukocytosis
-Continue to trend; given fevers overnight likely secondary to pneumonia versus less likely bacteremia
-Blood culture + for gram-positive cocci in clusters--coag neg; likely contamination
-Continue Unasyn for now
# Mild hyperglycemia; likely secondary to stress
-Insulin sliding scale; goal 140�180
# Essential hypertension
-Continue to monitor blood pressure; currently stable and patient is off nicardipine drip
# Hypothyroidism
# History of multinodular goiter; noted on CT chest
-TSH mildly elevated with low free T4
-Hold on for consideration of adding Synthroid
-Repeat TSH 8.80 and FT4 0.98
# History of Hodgkin's disease
-History of mantle radiation in his 20s
DVT prophylaxis: Patient on dual antiplatelet therapy
GI prophylaxis: Patient on IV PPI twice daily
Continue with cholesterol-lowering diet
Transfer out of ICU
Subjective Dataa
Subjective Data
Date of Service:
Date of Service: February 10, 2025
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
Subjective:
Patient evaluated in the a.m. Heart rate 90, blood pressure 134/69, respiratory rate 14, temperature 98, oxygen saturation 94% on room air. Patient weaned off of Levophed. Complains of mild right-sided rib cage pain with cough. Specifically
denies radiating chest pain and shortness of breath. Able to pass flatus but no bowel movement yet.
Review of Systems
General: Fever (n)
Cardiopulmonary: Dyspnea, Cough (n), Chest Pain (n) and Edema (n)
GI: Abdominal Pain (n)
Neuro: Headache (n)
Genitourinary: Salazar (n)
Objective Data
Data Reviewed
Vital Signs / I&O / Oxygen:
Vital Signs
Temp Pulse Resp BP Pulse Ox
98 F 90 14 134/69 94
02/10/25 08:07 02/10/25 07:34 02/10/25 07:34 02/10/25 07:00 02/10/25 07:34
Intake and Output
02/09/25 02/10/25 02/11/25
06:59 06:59 06:59
Intake Total 4124.5 / 4204.5 1430.1 / 1430.1
Output Total 1041 / 1061 1030 / 1030 400 / 400
Balance 3083.5 / 3143.5 400.1 / 400.1 -400 / -400
Physical Exam
General: Comfortable
Cardiovascular: S1-S2 and Regular Rhythm
Respiratory: Clear and Non-Labored Respirations
GI: Soft, Non Distended and Non Tender
Neurology: Awake, Alert and Oriented
Skin: Warm and Dry
Labs/Micro/Reports
Lab Data
02/10/25 04:25
02/10/25 04:25
Microbiology
02/07/25 18:01 Blood/Venous Blood Culture - Preliminary
Coagulase neg. staphylococcus
Additional testing on request
02/07/25 18:01 Blood/Venous Gram Stain - Preliminary
02/07/25 18:01 Blood/Venous Blood Culture - Preliminary
No Growth in 48 hours- Final report to follow
02/07/25 19:16 Urine Urine Culture - Final
NO GROWTH
02/07/25 18:00 Nasal Swab Influenza Types A & B (OANH) - Final
Negative for Influenza A & B, NAAT
Negative results must be combined with clinical observations
and patient history.
Nucleic Acid Amplification test (NAAT)performed on the
[employer] platform.
--- NOTE | 2025-02-10 08:20 | PTCARENOTE ---
Assumed care of pt at 0715 following shift report. Pt awake and resting quietly in bed, all conversation appropriate. No running IVs. Physical assessment completed as documented. Using urinal independently to void. Pt reports sternum/rib discomfort
w/ movement and coughing. Denies other form of chest pain. Denies SOB. Pt remains on RA w/ POx 94%. Mild MARROQUIN noted. Encouraged to order breakfast and provided w/ phone and menu. Call handy w/in pt reach and safe environment maintained.
[2025-02-10] MEDS: NSS (PRESERVATIVE FREE) 10 ML IV (08:24)
[2025-02-10] MEDS: PROTONIX IV 40 MG IV (08:24)
[2025-02-10] MEDS: BRILINTA 90 MG PO ×2 (08:25→20:54)
[2025-02-10] MEDS: MIRALAX 17 GRAMS TUBE (08:25)
[2025-02-10] MEDS: LOW STRENGTH ASPIRIN 81 MG PO (08:25)
--- NOTE | 2025-02-10 08:30 | CM ---
Patient seen at bedside. Patient pending PT/OT assessments. Plan for patient to transition out of ICU per physician. CM will continue to follow for discharge planning needs.
Plan; pending PT/OT assessment; VN vs outpatient needs
--- NOTE | 2025-02-10 08:35 | W.PN.HOSP.TC ---
Today's Communication/Plan
-
transfer to tele
PT/OT
Assessment / Plan
Assessment / Plan
pt is a 74 year old male
Cardiac Arrest--out of hospital--s/p 2 shocks via AED--CPR started by daughter (fractured ribs from that)--apprec cards/central supply assistant input-- - Echo done in the ED with normal LVEF. Inferior/apical/septal hypokinesis/Moderate MR--cont
asa/Brilinta---s/p cardiac cath with Codominant circulation with the distal inferior interventricular septum supplied by a large, not wraparound LAD, a relatively small and diffusely diseased distal RCA and an acute occlusion of the mid RCA, status
post successful PCI --cont lopressor with parameters--troponin peaked at 40, decreasing 17.6-- transfer to tele
forgetfulness--possibly due to anoxic injury from arrest--unknown baseline (whether had before arrest or not)--cont cognitive therapy--CT head unremarkable.
VDRF--intubated in ED, extubated 02/08--pt awake--cont unasyn started by central supply assistant (had N/V--? aspiration)--follow CXR--blood cultures positive for coag neg staph--contaminant
GERD with Heme Positive Stools--HGB stable--apprec GI--PO PPI--nothing further at this point
Essential Hypertension-- BP markedly elevated in the ED - but improved fairly quickly--was briefly on cardene drip
Multinodular Goiter - Noted on CT chest--TSH 8.74
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
DVT Prophylaxis: IV Heparin at present
Code Status: Full
Anticipated Discharge: 24 - 48 hours
Subjective/Interval History
-
Date of Service: February 10, 2025
he denies c/o--nursing reports that he is forgetful and asks questions over
Objective Data
-
Labs:
Laboratory Results
02/10/25
04:25
WBC 12.3 H
Hgb 12.2 L
Hct 36.6 L
Plt Count 269
Sodium 138
Potassium 4.4
Chloride 109 H
Carbon Dioxide 21 L
BUN 34 H
Creatinine 1.2
Glucose 104 H
Calcium 8.8
Total Bilirubin 1.6 H
AST 139 H
ALT 73 H
Alkaline Phosphatase 90
Vital Signs:
max temp for 24 hours
02/09/25
12:00
Temp 99.8 F
Vital Signs
Temp Pulse Resp BP Pulse Ox
98 F 90 14 134/69 94
02/10/25 08:07 02/10/25 07:34 02/10/25 07:34 02/10/25 07:00 02/10/25 07:34
I&O
02/09/25 02/10/25 02/11/25
06:59 06:59 06:59
Intake Total 4124.5 / 4204.5 1430.1 / 1430.1
Output Total 1041 / 1061 1030 / 1030 400 / 400
Balance 3083.5 / 3143.5 400.1 / 400.1 -400 / -400
Review of Systems
-
All other systems: Reviewed and negative
Physical Exam
-
General: Well Developed, Well Nourished and No Apparent Distress
HEENT: Normocephalic and Atraumatic; Negative Oxygen
Respiratory: Clear to Auscultation; Negative Wheezes or Rhonchi
Cardiac: Regular Rhythm and S1/S2; Negative Murmur
GI: Soft, Nontender, Nondistended and Normal Bowel Sounds
Musculoskeletal: No Clubbing, No Cyanosis and No Edema
Neuro: Awake and Alert
Psych: Calm
[2025-02-10] MEDS: TYLENOL 650 MG PO ×2 (08:39→17:35)
[2025-02-10] MEDS: LASIX 40 MG IV (09:39)
--- NOTE | 2025-02-10 10:25 | PN.CDI ---
CDI
- -
CDI:
Physician Documentation Request
Admit Date: 02/07/25 21:26
Dear Doctor Shawna,
Please review the following and provide your response in the progress notes.
Clinical Indicators:
Pt admitted with out of hospital cardiac arrest/NSTEMI /Acute Hypoxic Respiratory Failure
Car Rental Clerk consult, ' Given patient's uts-hn-fnexwmki cardiac arrest with patchy opacification in the medial left lower lobe seen on CT chest from 02/07/2025, I will empirically start antibiotics with Unasyn..'
Progress notes 02/08-02/10,' VDRF--intubated in ED--pt awake--await science tutor but likely SBT to extubation today--Unasyn started by science tutor (had N/V--? aspiration)--follow CXR...'
Please provide a suspected /possibly diagnosis for the above ' aspiration'/IV abx Unasyn:
Aspiration Pneumonia
Aspiration Pneumonitis
Aspiration only
Other ( please specify)
Use of terms such as suspected, likely, concern for, or probable (associated with a specific diagnosis that is being evaluated, monitored, or treated as if it exists) are acceptable and can be coded in the inpatient setting, when documented at the
time of discharge.
Thank you,
Denise Pena RN
CDI Specialist
[facility]
Please use your independent medical judgment in providing your response.
--- NOTE | 2025-02-10 10:49 | PTCARENOTE ---
Pt continues to rest quietly in bed- reports 'some' relief following prn administration of Tylenol for sternal/rib pain. Lasix given as ordered by Dr Rowe and pt voiding clear yellow urine. visiting at bedside- updated on plan of care
including transfer to telemetry and all questions answered.
--- NOTE | 2025-02-10 11:11 | PTCARENOTE ---
Transfer Rreport called to 'Will RN'. Pt to transfer to Rm [id number]. All personal belongings sent w/ pt at time of transfer. No new complaints or changes noted prior to transfer.
[2025-02-10] MEDS: LIPITOR 40 MG PO (18:08)
[2025-02-10] MEDS: HEPARIN 5000 UNITS SC (20:54)
[2025-02-10] MEDS: PEPCID 20 MG PO (22:26)
[2025-02-10] MEDS: MORPHINE SULFATE 2 MG IV (22:46)
[2025-02-11] VITALS (8 sets, daily range): BP systolic 134–156; BP diastolic 64–89; BMI 30.8
--- NOTE | 2025-02-11 03:10 | PTCARENOTE ---
AAO x 4 yet, patient can be forgetful and impulsive. VSS. NSR on telemetry. Patient complains of substernal chest pain due to fractured ribs--PRN morphine administered for pain management. Right groin cath, puncture site with ecchymosis--no hematoma
noted. OOB x 1 assist with RW. Gait unsteady--patient does forget his limitations thus, bed alarm placed for safety. Patient re-educated on importance of utilizing call handy prior to exiting bed. Bed in lowest position. All patient needs met. Call
handy and personal belongings within reach.
[2025-02-11] MEDS: UNASYN IV ×4 (04:19→22:14)
[2025-02-11] MEDS: MORPHINE SULFATE 2 MG IV (04:27)
[2025-02-11] MEDS: DUONEB 3 ML INH (07:45)
[2025-02-11 07:50] LABS: Hemoglobin 11.4 g/dL (13.0-18.0); Mean Corp Hgb Conc. 32.6 g/dL (33.0-37.0); Mean Corpuscular Hgb 30.6 pg (27.0-31.0); Mean Corpuscular Volume 93.8 fL (80.0-94.0); Mean Platelet Volume 10.8 fL (7.4-10.4); Platelet Count 288 10^3/uL (130-400); Red Blood Cell Count 3.73 10^6/uL (4.70-6.10); Red Cell Dist. Width 15.2 % (11.5-14.5); White Blood Cell Count 10.4 10^3/uL (4.8-10.8)
[2025-02-11 08:33] LABS: ALT (SGPT) 54 U/L (0-50); AST (SGOT) 73 U/L (17-59); Albumin 3.3 g/dl (3.5-5.0); Alkaline Phosphatase 90 U/L (38-126); Blood Urea Nitrogen 27 mg/dl (9-20); Calcium 8.7 mg/dl (8.4-10.2); Carbon Dioxide 26 mmol/L (22-30); Chloride 107 mmol/L (98-107); Estimated Creatinine Clearance 67 ml/min; Glucose 100 mg/dl (70-99); Magnesium 2.1 mg/dl (1.6-2.3); Potassium 4.1 mmol/L (3.5-5.1); Sodium 141 mmol/L (135-145); Total Bilirubin 1.2 mg/dl (0.2-1.3); Total Protein 6.1 g/dl (6.3-8.2); eGFR > 60.00
--- NOTE | 2025-02-11 08:35 | W.PN.CD ---
Today's Communication / Plan
-
lasix 40mg IV x1
start Toprol XL
cont ASA/Brilinta
Impression / Plan
-
Impression/Plan: 74 y/o male with remote history of Hodgkin's lymphoma s/p mantle radiation (in his 20's), GERD with Schatzki's ring and HTN admitted as an OOH arrest with bystander CPR (daughter) and shockable rhythm, ROSC with EMS after 2
defibrillations.
#Out of hospital cardiac arrest with shockable rhythm
-Initial EKG did NOT show any ST elevation.
-Occluded mRCA at cath, s/p PCI 02/08
-interventional cards recs reviewed: not recommending ICD given reversible etiology
#CAD, NSTEMI
-Acute.
-Trend = 0.096 --> 0.731 --> 5.470 --> 18.700 --> 16.900 --> 40.300 --> 17.6. I suspect that the troponin rise is due to reperfusion and liberation of troponin from ischemic myocardium.
-Basal to mid inferior/inferoseptal and apical septal hypokinesis with preserved LVEF (50-55%) on echo
-Occluded mRCA at cath, s/p PCI (Medtronic Tello [place] 2.0 x 18 DAMARIS, post dilated with a 2.25 NCB throughout, 2.5 NCB in proximal margin) with reduction in stenosis to 0%, restoring ROBBIN III flow to diffusely diseased distal RCA/small RPDA.
-DAPT with aspirin and ticagrelor x12 months, followed by aspirin indefinitely.
-start Toprol XL 25mg daily
# Acute HFPEF
-LVEDP elevated at cath
-lasix 40mg IV x1 today, and reassess on daily basis; requires close monitoring of labs/tele
# Rhythm
-sinus, PAC's, brief SVT
-start Toprol XL and titrate
#Fever/Bacteremia
-per hospitalist
#Anemia
-per hospitalist
#Hypertension
-started Toprol XL
-assess to resume home olmesartan as he recovers
#Severe GERD and prior history of esophageal stricture
-Chronic, stable.
-GI following.
-PPI.
#Hx of Hodgkin's disease, 'chest radiation' and splenectomy per old records
-Radiation will complicate coronary atherosclerosis, and increases risk of valvular HD in future
DATA:
Echocardiogram, 02/07/2025:
CONCLUSIONS
Normal left ventricular size with low normal left ventricular systolic function
Basal to mid inferior/inferoseptal and apical septal hypokinesis.
LV ejection fraction is 50-55% by visual assessment.
Mildly dilated right ventricle with low normal RV systolic function
Thickened mitral valve leaflets with mild, perhaps mild to moderate eccentric
mitral regurgitation
Trileaflet sclerotic aortic valve without stenosis. Trivial aortic
regurgitation
Mild tricuspid regurgitation
Estimated pulmonary artery pressure of 58-63 mmHg assuming a right atrial
pressure of 10-15 mmHg. The IVC is dilated and does not collapse.
No pericardial effusion.
No prior study available for comparison
CTA chest/abdomen/pelvis, 02/07/2025:
IMPRESSION:
1. No aortic aneurysm or dissection.
2. Minimally displaced anterolateral right fourth, fifth and sixth rib fractures.
3. Suspect diffuse enteritis/ileus.
4. Probably benign although indeterminate right renal lesions. Recommend outpatient workup with dedicated renal ultrasound.
CT Head, 02/07/2025:
IMPRESSION:
No acute intracranial abnormality noted.
Cardiac Catheterization/PCI, 02/08/2025:
CONCLUSIONS
1. Codominant circulation with the distal inferior interventricular septum supplied by a large, not wraparound LAD, a relatively small and diffusely diseased distal RCA and an acute occlusion of the mid RCA, status post successful PCI (Medtronic
Tello [place] 2.0 x 18 DAMARIS, postdilated with a 2.25 NC balloon throughout and a 2.5 x 12 NC balloon in the proximal margin) with reduction in stenosis to 0%, restoring ROBBIN-3 flow.
2. Severely elevated filling pressures (LVEDP = 24 mmHg at 91.6 kg).
Physical Exam
Vital Signs/Labs
Vital Signs
Temp Pulse Resp BP Pulse Ox
98.2 F 71 16 134/67 96
02/11/25 03:01 02/11/25 07:48 02/11/25 07:48 02/11/25 03:01 02/11/25 07:48
02/10/25 02/11/25 02/12/25
06:59 06:59 06:59
Actual Weight 95.3 kg 94.438 kg
02/11/25 06:20
02/11/25 06:20
PT 13.4 Sec (11.4-14.6) 02/07/25 17:59
INR 0.99 02/07/25 17:59
APTT Cancelled 02/08/25 21:00
Magnesium 2.1 mg/dl (1.6-2.3) 02/11/25 06:20
Triglycerides 123 mg/dl (10-149) 02/10/25 04:25
LDL Cholesterol, Calc 63 mg/dl 02/09/25 04:06
VLDL Cholesterol, Calc 22 mg/dl (0-30) 02/09/25 04:06
HDL Cholesterol 38 mg/dl 02/09/25 04:06
Free T4 0.98 ng/dl (0.78-2.19) 02/10/25 04:25
02/07/25
17:59
Gej-N-Grctnmejyhp Pept 1070
LAB Results
02/08/25 02/08/25 02/09/25
08:33 14:27 04:06
Troponin I 18.700 H* D 16.900 H* 40.300 H*
02/10/25
04:25
Troponin I 17.600 H*
Physical Exam
Constitutional: No acute distress and Comfortable
EENT: Moist mucous membranes
Cardiovascular: Rhythm & rate is regular, Systolic murmur absent, Pedal edema present (trace LE) and JVD present
Respiratory: Respiratory effort normal and Lungs clear to auscul.
Neuro/Psych: AO x 3
Data Reviewed
-
Date of Service: February 11, 2025
EKG: Other (Tele: SR, PAC's, brief SVT)
Labs: Labs Reviewed by me
[2025-02-11] MEDS: LASIX 40 MG IV (09:04)
[2025-02-11] MEDS: MIRALAX 17 GRAMS TUBE (09:05)
[2025-02-11] MEDS: LOW STRENGTH ASPIRIN 81 MG PO (09:05)
[2025-02-11] MEDS: BRILINTA 90 MG PO ×2 (09:08→20:16)
[2025-02-11] MEDS: TOPROL XL 25 MG PO (09:08)
[2025-02-11] MEDS: PROTONIX 40 MG PO (09:08)
[2025-02-11] MEDS: HEPARIN 5000 UNITS SC (10:41)
--- NOTE | 2025-02-11 12:14 | CM ---
Addendum entered by Sylvia Gillespie 02/11/25 16:46:
Per physician patient for transfer to [facility], with new + blood cultures. CM will continue to follow.
Plan; home with family and follow up with cardiac therapy
Addendum entered by Sylvia Gillespie 02/11/25 14:56:
Patient at bedside. IMM provided to patient to review. Patient for possible discharge tomorrow. Patient for cardiac rehab and will also need referral for outpatient occupational therapy. Patient aware. CM will continue to follow for
discharge planning needs.
Plan; home with family; follow up at cardiac therapy and outpatient occupational therapy.
Original Note:
Patient seen at bedside with physician. Patient stated that he was awaiting Dr. Hernandez. Patient did not seem to remember physician. CM will call to patient daughter to review discharge planning. Therapy is recommending cardiac therapy. CM will continue
to follow for discharge planning needs.
Plan; home with VN vs cardiac therapy vs SNF
--- NOTE | 2025-02-11 13:53 | W.PN.HOSP.TC ---
Today's Communication/Plan
-
will need outpt cognitive therapy and cardiac rehab
Assessment / Plan
Assessment / Plan
pt is a 74 year old male
Cardiac Arrest--out of hospital--s/p 2 shocks via AED--CPR started by daughter (fractured ribs from that)--apprec cards/faith healer input-- - Echo done in the ED with normal LVEF. Inferior/apical/septal hypokinesis/Moderate MR--cont
asa/Brilinta---s/p cardiac cath with Codominant circulation with the distal inferior interventricular septum supplied by a large, not wraparound LAD, a relatively small and diffusely diseased distal RCA and an acute occlusion of the mid RCA, status
post successful PCI --cont lopressor with parameters--troponin peaked at 40, decreasing-- transfer to tele
forgetfulness--possibly due to anoxic injury from arrest--unknown baseline (whether had before arrest or not)--cont cognitive therapy--CT head unremarkable--would recommend pt not drive until cleared
VDRF--intubated in ED, extubated 02/08--pt awake--cont unasyn started by faith healer (had N/V--likely aspiration pneumonia)--follow CXR--blood cultures positive for coag neg staph--contaminant
GERD with Heme Positive Stools--HGB stable--apprec GI--PO PPI--nothing further at this point
Essential Hypertension-- BP markedly elevated in the ED - but improved fairly quickly--was briefly on cardene drip
Multinodular Goiter - Noted on CT chest--TSH 8.74
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
DVT Prophylaxis: IV Heparin at present
Code Status: Full
Anticipated Discharge: Within 24 hours
Subjective/Interval History
-
Date of Service: February 11, 2025
pt to me seems like cognitive issue (anoxia likely)
Objective Data
-
Labs:
Laboratory Results
02/11/25
06:20
WBC 10.4
Hgb 11.4 L
Hct 35.0 L
Plt Count 288
Sodium 141
Potassium 4.1
Chloride 107
Carbon Dioxide 26
BUN 27 H
Creatinine 1.1
Glucose 100 H
Calcium 8.7
Total Bilirubin 1.2
AST 73 H
ALT 54 H
Alkaline Phosphatase 90
Vital Signs:
max temp for 24 hours
02/11/25
03:01
Temp 98.2 F
Vital Signs
Temp Pulse Resp BP Pulse Ox
97.9 F 87 20 138/64 97
02/11/25 11:00 02/11/25 11:00 02/11/25 11:00 02/11/25 11:00 02/11/25 11:00
I&O
02/10/25 02/11/25 02/12/25
06:59 06:59 06:59
Intake Total 1430.1 / 1430.1 1360 / 1360
Output Total 1030 / 1030 2150 / 2150
Balance 400.1 / 400.1 -790 / -790
Review of Systems
-
All other systems: Reviewed and negative
Physical Exam
-
General: Well Developed, Well Nourished and No Apparent Distress
HEENT: Normocephalic and Atraumatic; Negative Oxygen
Respiratory: Clear to Auscultation and Wheezes; Negative Rhonchi
Cardiac: Regular Rhythm and S1/S2; Negative Murmur
GI: Soft, Nontender, Nondistended and Normal Bowel Sounds
Musculoskeletal: No Clubbing, No Cyanosis and No Edema
Neuro: Awake
Psych: Calm
[2025-02-11] MEDS: TYLENOL 650 MG PO (15:41)
[2025-02-11] MEDS: LIPITOR 40 MG PO (16:29)
--- NOTE | 2025-02-11 16:37 | PN.CDI ---
CDI
- -
CDI:
Physician Documentation Request
Admit Date: 02/07/25 21:26
Dear Doctor Shawna,
Please review the following and provide your response in the progress notes.
Clinical Indicators:
Pt admitted with out of hospital cardiac arrest/NSTEMI /Acute Hypoxic Respiratory Failure
Progress note 02/11,' -cont unasyn started by supervisor fusing room (had N/V--likely aspiration pneumonia)-.'
On admission WBC 13.4, Tmax 100.6 ( 02/08),HR 129, Respirations 28
Please clarify which of the following most accurately describes the status of the patient's infection:
Sepsis-POA
- Systemic manifestations of infection, with 2 or more SIRS criteria which include:
- Fever >100.4 degrees F or hypothermia < 96.8 degrees F
- Leukocytosis - WBC > 12,000 or leukopenia - WBC < 4,000 or > 10% bands
- Tachycardia > 90 beats per minute
- Tachypnea - RR > 20 breaths per minute or PaCO2 , 32mmHg
Source: Merck Manual 2013
Sepsis-Evolved during Hospitalization
Aspiration pneumonia only , Without Systemic Illness
Other ( please specify)
Use of terms such as suspected, likely, concern for, or probable (associated with a specific diagnosis that is being evaluated, monitored, or treated as if it exists) are acceptable and can be coded in the inpatient setting, when documented at the
time of discharge.
Thank you,
Denise Pena RN
CDI Specialist
[facility]
Please use your independent medical judgment in providing your response.
--- NOTE | 2025-02-11 16:49 | CM ---
Patient at bedside. IMM provided to patient to review. Patient for possible discharge tomorrow. Patient for cardiac rehab and will also need referral for outpatient occupational therapy. Patient aware. CM will continue to follow for
discharge planning needs.
Plan; home with family; follow up at cardiac therapy and outpatient occupational therapy.
Original Note:
Patient seen at bedside with physician. Patient stated that he was awaiting Dr. Hernandez. Patient did not seem to remember physician. CM will call to patient daughter to review discharge planning. Therapy is recommending cardiac therapy. CM will continue
to follow for discharge planning needs.
Plan; home with VN vs cardiac therapy vs SNF
Initialized on 02/11/25 12:14 - END OF NOTE
[2025-02-11] MEDS: PEPCID 20 MG PO (22:14)
[2025-02-12 03:33] VITALS: BP 142/81
[2025-02-12] MEDS: UNASYN IV ×2 (04:20→10:30)
[2025-02-12 06:00] VITALS: BMI 29.4
[2025-02-12 07:00] VITALS: BP 142/77
[2025-02-12 08:48] LABS: Hemoglobin 11.1 g/dL (13.0-18.0); Mean Corp Hgb Conc. 32.6 g/dL (33.0-37.0); Mean Corpuscular Hgb 30.7 pg (27.0-31.0); Mean Corpuscular Volume 93.9 fL (80.0-94.0); Mean Platelet Volume 10.6 fL (7.4-10.4); Platelet Count 300 10^3/uL (130-400); Red Blood Cell Count 3.62 10^6/uL (4.70-6.10); White Blood Cell Count 10.4 10^3/uL (4.8-10.8)
[2025-02-12 09:42] LABS: ALT (SGPT) 42 U/L (0-50); AST (SGOT) 48 U/L (17-59); Albumin 3.4 g/dl (3.5-5.0); Alkaline Phosphatase 92 U/L (38-126); Blood Urea Nitrogen 23 mg/dl (9-20); Calcium 9.1 mg/dl (8.4-10.2); Carbon Dioxide 26 mmol/L (22-30); Chloride 105 mmol/L (98-107); Estimated Creatinine Clearance 59 ml/min; Glucose 96 mg/dl (70-99); Potassium 4.2 mmol/L (3.5-5.1); Sodium 139 mmol/L (135-145); Total Protein 6.1 g/dl (6.3-8.2); eGFR > 60.00
[2025-02-12] MEDS: MIRALAX TUBE (10:27)
[2025-02-12] MEDS: TOPROL XL 25 MG PO ×2 (10:29→11:04)
[2025-02-12] MEDS: LOW STRENGTH ASPIRIN 81 MG PO (10:29)
[2025-02-12] MEDS: BRILINTA 90 MG PO (10:29)
[2025-02-12] MEDS: PROTONIX 40 MG PO (10:29)
--- NOTE | 2025-02-12 10:30 | W.PN.CD ---
Today's Communication / Plan
-
discharge planning
we will arrange for follow up with us: please call us with additional questions
ASA 81mg daily, brilinta 90mg bid, atorvastatin 40mg daily, Toprol XL 50mg daily, olmesartan 20mg daily
Impression / Plan
-
Impression/Plan: 74 y/o male with remote history of Hodgkin's lymphoma s/p mantle radiation (in his 20's), GERD with Schatzki's ring and HTN admitted as an OOH arrest with bystander CPR (daughter) and shockable rhythm, ROSC with EMS after 2
defibrillations.
#Out of hospital cardiac arrest with shockable rhythm
-Initial EKG did NOT show any ST elevation.
-Occluded mRCA at cath, s/p PCI 02/08
-interventional cards recs reviewed: not recommending ICD given reversible etiology
#CAD, NSTEMI
-Acute.
-Trend = 0.096 --> 0.731 --> 5.470 --> 18.700 --> 16.900 --> 40.300 --> 17.6. I suspect that the troponin rise is due to reperfusion and liberation of troponin from ischemic myocardium.
-Basal to mid inferior/inferoseptal and apical septal hypokinesis with preserved LVEF (50-55%) on echo
-Occluded mRCA at cath, s/p PCI (Medtronic Tello [place] 2.0 x 18 DAMARIS, post dilated with a 2.25 NCB throughout, 2.5 NCB in proximal margin) with reduction in stenosis to 0%, restoring ROBBIN III flow to diffusely diseased distal RCA/small RPDA.
-DAPT with aspirin and ticagrelor x12 months, followed by aspirin indefinitely.
-continue Toprol XL 50mg daily
# Acute HFPEF
-LVEDP elevated at cath
-resolved s/p IV lasix
-on d/c: lasix prn for weight gain 2-3lb overnight, or 5 lbs in one week
# Rhythm
-sinus, PAC's, brief SVT
-started Toprol XL this admission
#Hypertension
-started Toprol XL
-resume home olmesartan
#Severe GERD and prior history of esophageal stricture
-Chronic, stable.
-GI following.
-PPI.
#Hx of Hodgkin's disease, 'chest radiation' and splenectomy per old records
-Radiation will complicate coronary atherosclerosis, and increases risk of valvular HD in future
DATA:
Echocardiogram, 02/07/2025:
CONCLUSIONS
Normal left ventricular size with low normal left ventricular systolic function
Basal to mid inferior/inferoseptal and apical septal hypokinesis.
LV ejection fraction is 50-55% by visual assessment.
Mildly dilated right ventricle with low normal RV systolic function
Thickened mitral valve leaflets with mild, perhaps mild to moderate eccentric
mitral regurgitation
Trileaflet sclerotic aortic valve without stenosis. Trivial aortic
regurgitation
Mild tricuspid regurgitation
Estimated pulmonary artery pressure of 58-63 mmHg assuming a right atrial
pressure of 10-15 mmHg. The IVC is dilated and does not collapse.
No pericardial effusion.
No prior study available for comparison
CTA chest/abdomen/pelvis, 02/07/2025:
IMPRESSION:
1. No aortic aneurysm or dissection.
2. Minimally displaced anterolateral right fourth, fifth and sixth rib fractures.
3. Suspect diffuse enteritis/ileus.
4. Probably benign although indeterminate right renal lesions. Recommend outpatient workup with dedicated renal ultrasound.
CT Head, 02/07/2025:
IMPRESSION:
No acute intracranial abnormality noted.
Cardiac Catheterization/PCI, 02/08/2025:
CONCLUSIONS
1. Codominant circulation with the distal inferior interventricular septum supplied by a large, not wraparound LAD, a relatively small and diffusely diseased distal RCA and an acute occlusion of the mid RCA, status post successful PCI ([employer]tronic
Tello [place] 2.0 x 18 DAMARIS, postdilated with a 2.25 NC balloon throughout and a 2.5 x 12 NC balloon in the proximal margin) with reduction in stenosis to 0%, restoring ROBBIN-3 flow.
2. Severely elevated filling pressures (LVEDP = 24 mmHg at 91.6 kg).
Physical Exam
Vital Signs/Labs
Vital Signs
Temp Pulse Resp BP Pulse Ox
98.6 F 89 20 142/77 96
02/12/25 07:00 02/12/25 07:00 02/12/25 07:00 02/12/25 07:00 02/12/25 07:00
02/11/25 02/12/25 02/13/25
06:59 06:59 06:59
Actual Weight 94.438 kg 90.35 kg
02/12/25 06:27
02/12/25 06:27
PT 13.4 Sec (11.4-14.6) 02/07/25 17:59
INR 0.99 02/07/25 17:59
APTT Cancelled 02/08/25 21:00
Magnesium 2.0 mg/dl (1.6-2.3) 02/12/25 06:27
Triglycerides 123 mg/dl (10-149) 02/10/25 04:25
LDL Cholesterol, Calc 63 mg/dl 02/09/25 04:06
VLDL Cholesterol, Calc 22 mg/dl (0-30) 02/09/25 04:06
HDL Cholesterol 38 mg/dl 02/09/25 04:06
Free T4 0.98 ng/dl (0.78-2.19) 02/10/25 04:25
02/07/25
17:59
Hdx-D-Larzrrfqoyh Pept 1070
LAB Results
02/10/25
04:25
Troponin I 17.600 H*
Physical Exam
Constitutional: No acute distress and Comfortable
EENT: Moist mucous membranes
Cardiovascular: Rhythm & rate is regular, Pedal edema is absent, JVD pressure is normal and Systolic murmur absent
Respiratory: Respiratory effort normal and Lungs clear to auscul.
Neuro/Psych: AO x 3
Data Reviewed
-
Date of Service: February 12, 2025
EKG: Other (tele: SR, PAC's, brief SVT; no NSVT)
Labs: Labs Reviewed by me
[2025-02-12 11:00] VITALS: BP 134/84
[2025-02-12] MEDS: BENICAR 20 MG PO (11:04)
--- NOTE | 2025-02-12 12:16 | W.PN.HOSP.TC ---
Today's Communication/Plan
-
d/c
Assessment / Plan
Assessment / Plan
pt is a 74 year old male
Cardiac Arrest--out of hospital--s/p 2 shocks via AED--CPR started by daughter (fractured ribs from that)--apprec cards/sales professional bilingual input-- - Echo done in the ED with normal LVEF. Inferior/apical/septal hypokinesis/Moderate MR--cont
asa/Brilinta---s/p cardiac cath with Codominant circulation with the distal inferior interventricular septum supplied by a large, not wraparound LAD, a relatively small and diffusely diseased distal RCA and an acute occlusion of the mid RCA, status
post successful PCI --cont lopressor with parameters--troponin peaked at 40, decreasing
forgetfulness--possibly due to anoxic injury from arrest--(did not have before arrest)--cont cognitive therapy, OT outpt, DO NOT DRIVE--CT head unremarkable--would recommend pt not drive until cleared
VDRF--intubated in ED, extubated 02/08--pt awake--cont unasyn started by sales professional bilingual (had N/V--likely aspiration pneumonia, no sepsis or systemic illness)-blood cultures positive for coag neg staph--contaminant
GERD with Heme Positive Stools--HGB stable--apprec GI--PO PPI--nothing further at this point
Essential Hypertension-- BP markedly elevated in the ED - but improved fairly quickly--was briefly on cardene drip
Multinodular Goiter - Noted on CT chest--TSH 8.74--outpt followup
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
DVT Prophylaxis: IV Heparin at present
Code Status: Full
OK for d/c
Anticipated Discharge: Today
Subjective/Interval History
-
Date of Service: February 12, 2025
pt cleared for d/c by cards
Objective Data
-
Labs:
Laboratory Results
02/12/25
06:27
WBC 10.4
Hgb 11.1 L
Hct 34.0 L
Plt Count 300
Sodium 139
Potassium 4.2
Chloride 105
Carbon Dioxide 26
BUN 23 H
Creatinine 1.1
Glucose 96
Calcium 9.1
Total Bilirubin 1.0
AST 48
ALT 42
Alkaline Phosphatase 92
Vital Signs:
max temp for 24 hours
02/12/25
03:33
Temp 98.4 F
Vital Signs
Temp Pulse Resp BP Pulse Ox
98.6 F 89 20 142/77 96
02/12/25 07:00 02/12/25 07:00 02/12/25 07:00 02/12/25 07:00 02/12/25 07:00
I&O
02/11/25 02/12/25 02/13/25
06:59 06:59 06:59
Intake Total 1360 / 1360 1030 / 1030 480 / 480
Output Total 2150 / 2150 1800 / 1800 150 / 150
Balance -790 / -790 -770 / -770 330 / 330
Review of Systems
-
All other systems: Reviewed and negative
Physical Exam
-
General: Well Developed, Well Nourished and No Apparent Distress
HEENT: Normocephalic and Atraumatic; Negative Oxygen
Respiratory: Clear to Auscultation; Negative Wheezes or Rhonchi
Cardiac: Regular Rhythm and S1/S2; Negative Murmur
GI: Soft, Nontender, Nondistended and Normal Bowel Sounds
Musculoskeletal: No Clubbing, No Cyanosis and No Edema
Neuro: Awake and Alert
Psych: Calm
[2025-02-12 12:32] VITALS: BP 134/84; PULSE 86; O2SAT 98
--- NOTE | 2025-02-12 12:46 | CM ---
CM reviewed chart, patient seen bedside with , discussed plan for discharge today, provided with script for outpatient PT/OT, patient is not considered homebound and does not qualify for VN services. reports she is home but works, son is
also home, will coordinate care around patients needs. to transport home. IMM signed placed in chart from yesterday 02/11. CM will continue to follow for all discharge planning needs.
Plan; home with family, outpatient PT/OT, cardiac PT
--- NOTE | 2025-02-12 14:10 | W.DCSUMMARY ---
Discharge Summary
Discharge Data
Date of Admission: 02/07/25
Date of Discharge: 02/12/25
Total time spent discharging patient (in min): 37
-
Pending Results: No
Hospital Course
Primary care physician : Tamar Jimenez
Principal Discharge diagnosis : [id number] cardiac arrest
Chronic Discharge diagnosis : Gastroesophageal reflux disease, essential hypertension, multinodular goiter, history of Hodgkin's lymphoma
Hospital Course : Patient was a 74-year-old male who presented after a cardiac arrest. On the day of admission, approximately 130 to 2 in the afternoon he felt lightheaded. His noted that he was pale appearing and he complained of some blurry
vision. He took his blood pressure at home and it was in the 80s to 100 range systolic. They did call his primary care physician. When they received a return call, patient was improved. He was lying in a recliner with his feet elevated and his
family encouraged him to drink fluids. At 5 PM, the patient suddenly slumped to the side and became unresponsive. His daughter was present and assessed him, found him to be without pulses and immediately started CPR. 911 was called. BLS arrived
first and applied an AED which advised shock x 2. Following the second shock return of spontaneous circulation was achieved. He was then transferred to the hospital for further evaluation. In the emergency department he had nausea and vomiting.
He was intubated in the ED. He was initially noted to be hypertensive and tachycardic and was started on a nicardipine drip. Patient was admitted to the intensive care unit.
Problem #1: [id number] cardiac arrest. Patient was admitted and seen in consultation by cardiology and the assistant executive housekeeper. Patient sustained fractured ribs from CPR started by his daughter. Echocardiogram done in the emergency department showed
a normal LV ejection fraction with inferior/apical/septal hypokinesis/moderate mitral regurgitation. Patient did have a cardiac catheterization which showed codominant circulation but the distal inferior interventricular septum, supplied by a large
not wraparound LAD and a diffusely diseased distal RCA with an acute occlusion of the mid RCA that underwent successful post PCI. Aspirin and Brilinta were continued. Lopressor was given with parameters. Patient's troponin peaked at 40 and
decreased during his hospitalization.
Patient had vent dependent respiratory failure and was intubated in the emergency department and given his nausea and vomiting was presumed to have aspiration pneumonia. The patient did not have sepsis nor systemic illness. Blood cultures were
positive for coagulase-negative staph which was a contaminant. He was started on Unasyn by the assistant executive housekeeper. He was successfully extubated on February 08, 2025.
In addition, the patient had cognitive issues which appeared likely due to his anoxic injury from his arrest. It was determined that the patient did not have this prior to admission. He was seen in consultation by Occupational Therapy and physical
therapy and they are both recommending outpatient cognitive therapy and physical therapy prior to his cardiac rehab. CAT scan done here on admission was unremarkable. It has been recommended to the patient that he not drive until he is cleared to
do so.
Problem #2: All other medical issues. These include Gastroesophageal reflux disease, essential hypertension, multinodular goiter, history of Hodgkin's lymphoma. These medical issues were stable during his hospitalization. Medications were
continued as able.
Patient is stable for discharge home at this time with outpatient therapy as directed. There are any questions regarding this dictation or his hospital stay, please not hesitate to call. Our office number is [phone].
Time for discharge 37 minutes.
Important imaging findings :
ECHOCARDIOGRAM CONCLUSIONS:
Normal left ventricular size with low normal left ventricular systolic function
Basal to mid inferior/inferoseptal and apical septal hypokinesis.
LV ejection fraction is 50-55% by visual assessment.
Mildly dilated right ventricle with low normal RV systolic function
Thickened mitral valve leaflets with mild, perhaps mild to moderate eccentric
mitral regurgitation
Trileaflet sclerotic aortic valve without stenosis. Trivial aortic
regurgitation
Mild tricuspid regurgitation
Estimated pulmonary artery pressure of 58-63 mmHg assuming a right atrial
pressure of 10-15 mmHg. The IVC is dilated and does not collapse.
No pericardial effusion.
No prior study available for comparison
CTA CHEST/ABDOMEN/PELVIS IMPRESSION:
1. No aortic aneurysm or dissection.
2. Minimally displaced anterolateral right fourth, fifth and sixth rib fractures.
3. Suspect diffuse enteritis/ileus.
4. Probably benign although indeterminate right renal lesions. Recommend outpatient workup with dedicated renal ultrasound.
HEAD CT SCAN IMPRESSION:
No acute intracranial abnormality noted.
Procedure findings :
CARDIAC CATH CONCLUSIONS:
1. Codominant circulation with the distal inferior interventricular septum supplied by a large, not wraparound LAD, a relatively small and diffusely diseased distal RCA and an acute occlusion of the mid RCA, status post successful PCI ([employer]
[place] 2.0 x 18 DAMARIS, postdilated with a 2.25 NC balloon throughout and a 2.5 x 12 NC balloon in the proximal margin) with reduction in stenosis to 0%, restoring ROBBIN-3 flow.
2. Severely elevated filling pressures (LVEDP = 24 mmHg at 91.6 kg).
Discharge Plan
-
Patient Disposition: Home (Routine Discharge)
Discharge Diagnosis/Procedures: Pmf-[id number] cardiac arrest, forgetfulness/cognitive impairment, gastroesophageal reflux disease with heme positive stools, essential hypertension, multinodular goiter, history of Hodgkin's lymphoma
Condition: Good
Diet: Low Cholesterol and 2 Gram Sodium
Activity: As tolerated
Driving Restrictions: You should not drive until you have been cleared b
Bathing Restrictions: None
Other Services: PT, OT and Cardiac Rehab
Referrals:
Aracelis Marcus CRNP [Specified Professional Personl] - 03/03/25 1:40 pm
Jake-Tamar Fowler PA [Family Provider] - in less than 1 week
Prescriptions:
New
Brilinta 90 mg Tablet
90 mg PO BID Qty: 60 0RF
atorvastatin 40 mg Tablet
40 mg PO QPM Qty: 30 0RF
metoprolol succinate 50 mg Tablet Extended Release 24 Hr
50 mg PO DAILY Qty: 30 0RF
aspirin 81 mg Tablet,Chewable
81 mg PO DAILY Qty: 0 0RF
Continued
famotidine 20 mg Tablet
20 mg PO HS
pantoprazole 40 mg Tablet,Delayed Release (Dr/Ec)
40 mg PO DAILY
olmesartan 20 mg Tablet
20 mg PO DAILY
Saline Nasal 0.65 % Aerosol,[place]
1 spray INTRANASAL DAILYPRN PRN (Reason: dry sinuses)
Discharge Orders:
Discharge Patient (As Directed); Ordered 02/12/25
Ordered By: Josefina Matos
Discharge Date and Time
Discharge Date/Time: 02/12/25 14:07
Print Language: CZECH
== END 2025-02-12 14:07 | disposition home or self-care (01) | DRG 321 ==
LOC: 4 WEST ACU 21:26
PROVIDERS: Internal Medicine; Internal Medicine Cardiovascular Disease; Nurse Practitioner; Nurse Practitioner Family; ADMITTING PHYSICIAN Hospitalist; ATTENDING PHYSICIAN Internal Medicine; CONSULT PHYSICIAN Internal Medicine; EMERGENCY PHYSICIAN Emergency Medicine; FAMILY PHYSICIAN Physician Assistant; OTHER PHYSICIAN Internal Medicine Critical Care Medicine; OTHER PHYSICIAN Internal Medicine Interventional Cardiology
PROC: 5A1935Z Respiratory Ventilation, Less than 24 Consecutive Hours (ICD-10-PCS; 2025-02-07)
PROC: 0BH17EZ Insertion of Endotracheal Airway into Trachea, Via Natural or Artificial Opening (ICD-10-PCS; 2025-02-07)
PROC: 0D9670Z Drainage of Stomach with Drainage Device, Via Natural or Artificial Opening (ICD-10-PCS; 2025-02-07)
PROC: 0BP1XDZ Removal of Intraluminal Device from Trachea, External Approach (ICD-10-PCS; 2025-02-08)
PROC: 027034Z Dilation of Coronary Artery, One Artery with Drug-eluting Intraluminal Device, Percutaneous Approach (ICD-10-PCS; 2025-02-08)
PROC: 4A023N7 Measurement of Cardiac Sampling and Pressure, Left Heart, Percutaneous Approach (ICD-10-PCS; 2025-02-08)
PROC: B2111ZZ Fluoroscopy of Multiple Coronary Arteries using Low Osmolar Contrast (ICD-10-PCS; 2025-02-08)
DX: I21.4 Non-ST elevation (NSTEMI) myocardial infarction (principal); I46.9 Cardiac arrest, cause unspecified; J96.01 Acute respiratory failure with hypoxia; I50.31 Acute diastolic (congestive) heart failure; J69.0 Pneumonitis due to inhalation of food and vomit; I45.2 Bifascicular block; E87.20 Acidosis, unspecified; R57.9 Shock, unspecified; Z99.11 Dependence on respirator [ventilator] status; R13.10 Dysphagia, unspecified; K22.2 Esophageal obstruction; K21.9 Gastro-esophageal reflux disease without esophagitis; H53.8 Other visual disturbances; R19.5 Other fecal abnormalities; E04.2 Nontoxic multinodular goiter; R73.9 Hyperglycemia, unspecified; D72.829 Elevated white blood cell count, unspecified; I11.0 Hypertensive heart disease with heart failure; I25.10 Atherosclerotic heart disease of native coronary artery without angina pectoris; I27.20 Pulmonary hypertension, unspecified; E03.9 Hypothyroidism, unspecified; R41.89 Other symptoms and signs involving cognitive functions and awareness; R74.01 Elevation of levels of liver transaminase levels; Z96.652 Presence of left artificial knee joint; Z85.71 Personal history of Hodgkin lymphoma; Z92.3 Personal history of irradiation; Z90.81 Acquired absence of spleen; Z88.6 Allergy status to analgesic agent; Z88.1 Allergy status to other antibiotic agents; Z79.82 Long term (current) use of aspirin; Z11.52 Encounter for screening for COVID-19
CPT/HCPCS: 31500; 36556; 51702; 70450; 71045; 71275; 74174; 80048; 80053; 80061; 80306; 81003; 81015; 82077; 82248; 82805; 82962; 83036; 83605; 83735; 83880; 84100; 84439; 84443; 84478; 84484; 85014; 85018; 85025; 85027; 85347; 85610; 85730; 86850; 86900; 86901; 87040; 87086; 87147; 87205; 87502; 87811; 93005; 93306; 93458; 93970; 94002; 94003; 94640; 96361; 96374; 96375; 97116; 97129; 97163; 97167; 97530; 99291; C1725; C1760; C1874; C1887; C1894; C9600; Q9967

== ENCOUNTER 2025-02-23 15:02 | Outpatient (RCR) | payer OTHER, SELFPAY | END 2025-02-23 23:59 | disposition home or self-care (01) | LOC: ROT 15:02 | PROVIDERS: ATTENDING PHYSICIAN Physician Assistant | DX: I46.2 Cardiac arrest due to underlying cardiac condition (principal); Z73.6 Limitation of activities due to disability | CPT/HCPCS: 97110; 97163; 97167; 97530; 97537 ==

== ENCOUNTER 2025-03-03 15:22 | Outpatient (RCR) | payer OTHER, SELFPAY | END 2025-03-04 14:10 | disposition home or self-care (01) | LOC: ROT 15:22 | PROVIDERS: ATTENDING PHYSICIAN Physician Assistant | DX: I46.2 Cardiac arrest due to underlying cardiac condition (principal); Z73.6 Limitation of activities due to disability; R26.89 Other abnormalities of gait and mobility | CPT/HCPCS: 97110; 97530 ==

== ENCOUNTER 2025-03-31 08:55 | Outpatient (RCR) | payer OTHER, SELFPAY | END 2025-03-31 23:59 | disposition home or self-care (01) | LOC: CRHB 08:55 | PROVIDERS: ATTENDING PHYSICIAN Internal Medicine Cardiovascular Disease | DX: I21.01 ST elevation (STEMI) myocardial infarction involving left main coronary artery (principal); I25.2 Old myocardial infarction (principal); Z95.5 Presence of coronary angioplasty implant and graft; I25.10 Atherosclerotic heart disease of native coronary artery without angina pectoris | CPT/HCPCS: G0422; G0423 ==

== ENCOUNTER 2025-04-30 09:41 | Outpatient (RCR) | payer OTHER, SELFPAY | END 2025-04-30 23:59 | disposition home or self-care (01) | LOC: CRHB 09:41 | PROVIDERS: ATTENDING PHYSICIAN Internal Medicine Cardiovascular Disease | DX: I21.01 ST elevation (STEMI) myocardial infarction involving left main coronary artery (principal); Z95.5 Presence of coronary angioplasty implant and graft; I25.10 Atherosclerotic heart disease of native coronary artery without angina pectoris; I25.2 Old myocardial infarction | CPT/HCPCS: G0422; G0423 ==

== ENCOUNTER 2025-05-31 08:58 | Outpatient (RCR) | payer OTHER, SELFPAY | END 2025-05-31 23:59 | disposition home or self-care (01) | LOC: CRHB 08:58 | PROVIDERS: ATTENDING PHYSICIAN Internal Medicine Cardiovascular Disease | DX: I25.10 Atherosclerotic heart disease of native coronary artery without angina pectoris (principal); Z95.5 Presence of coronary angioplasty implant and graft; I25.2 Old myocardial infarction; I21.01 ST elevation (STEMI) myocardial infarction involving left main coronary artery | CPT/HCPCS: 93797; 93798; G0422; G0423 ==

== ENCOUNTER 2025-05-31 21:26 | Emergency (ER) | payer OTHER, SELFPAY ==
[2025-05-31 21:30] VITALS: BP 123/67
[2025-05-31 22:05] LABS: Hematocrit 32.6 % (39.0-52.0); Hemoglobin 10.9 g/dL (13.0-18.0); Mean Corp Hgb Conc. 33.4 g/dL (33.0-37.0); Mean Corpuscular Volume 93.4 fL (80.0-94.0); Nucleated Red Blood Cells % 0 % (-); Platelet Count 271 10^3/uL (130-400); Red Cell Dist. Width 15.7 % (11.5-14.5)
[2025-05-31 22:34] LABS: ALT (SGPT) 32 U/L (0-50); AST (SGOT) 38 U/L (17-59); Albumin 4.0 g/dl (3.5-5.0); Alkaline Phosphatase 68 U/L (38-126); Blood Urea Nitrogen 31 mg/dl (9-20); Calcium 9.6 mg/dl (8.4-10.2); Carbon Dioxide 23 mmol/L (22-30); Chloride 112 mmol/L (98-107); Glucose 95 mg/dl (70-99); Potassium 4.5 mmol/L (3.5-5.1); Sodium 142 mmol/L (135-145); Total Protein 6.7 g/dl (6.3-8.2); eGFR 52.74
[2025-05-31 23:34] VITALS: BMI 25.9
[2025-05-31 23:39] VITALS: BP 121/62
[2025-06-01] VITALS: BP 112/62
[2025-06-01 01:00] VITALS: BP 108/55
[2025-06-01 02:00] VITALS: BP 106/70
[2025-06-01 02:18] VITALS: BP 131/61
--- NOTE | 2025-06-01 03:06 | ED.GENMED ---
History of Present Illness
General
Chief Complaint: Fall
Source: patient
Exam Limitations: none
Time Seen by Provider: 06/01/25 01:52
Nursing documentation reviewed up to this point in time: agreed with
History of Present Illness
History of Present Illness:
Note:
CHIEF COMPLAINT(S)
Lightheadedness upon standing, followed by a fall.
HISTORY OF PRESENT ILLNESS
The patient is a 74-year-old male who experienced lightheadedness and dizziness upon standing from a chair at home, resulting in a fall. He was sent in by his PCP. He reports that when he fell, he hit his head and fell back, hitting the back of his
head. This episode occurred when the patient stood up quickly after hearing a noise, in order to run to inform his who was upstairs. The patient reported that he had experienced dizziness/lightheadedness upon standing before, but this incident
was notable for the rapid manner in which he stood up, which he believed contributed to his fall. He has been instructed by his primary care provider in the past to use caution with standing up from sitting due to these symptoms. Of note, his PCP
recently decreased his metoprolol dose because his blood pressure has been lower recently. He did not lose consciousness during the fall. Upon presentation, the patients blood pressure was noted to be low. The patient denied experiencing headache,
chest pain, shortness of breath, or vomiting. He sustained a slight scalp abrasion, which he noted stopped bleeding. Currently, the patient reports feeling well with no persistent lightheadedness or pain.
PHYSICAL EXAM
- Nursing notes reviewed and vital signs reviewed.
General: Patient is well appearing and in no acute distress; non-toxic
Skin: Warm and dry, small posterior scalp hematoma noted with overlying abrasion no active bleeding
Head: Normocephalic, atraumatic
Eyes: Sclera non-icteric. EOMs intact.
Cardiac: Regular rate and rhyth, no murmurs
Peripheral Vascular: No lower extremity swelling or edema
Pulm: Normal respiratory effort, no wheezes, rales, or rhonchi
Abdomen: No abdominal tenderness to palpation
Neuro: CN II-XII intact, no focal neurologic deficits. Normal steady gait. Symptoms are not reproducible.
Psychiatric: Appropriate mood and affect.
PROBLEM LIST
- Acute: lightheadedness, fall
- Chronic: Hypertension
PLAN
- Monitor the patient while ambulating to ensure no recurrence of dizziness or falls.
- CBC, CMP, ECG, CT of the head, CT cervical spine
- Review blood work to rule out other potential causes of dizziness.
- Ensure patient remains hydrated, potentially with intravenous fluids if necessary.
- Plan for discharge once the patient demonstrates stability with ambulation.
DIFFERENTIAL DIAGNOSIS
The Differential Diagnosis includes, in no particular order and is not limited to:
1. Orthostatic hypotension
2. Dehydration
3. Cardiac arrhythmia
4. Vestibular dysfunction
5. Inner ear infection
6. Medication side effects
7. Cerebrovascular accident
8. Transient ischemic attack
9. Anemia
10. Hypoglycemia
REVIEW OF PRIOR RECORDS
- reviewed discharge summary from 02/12/25 patient seen for cardiac arrest, was found to have on catheterization during that hospitalization a relatively small and diffusely diseased distal RCA and an acute occlusion of the mid RCA, status post
successful PCI
MDM/DISPOSITION
The patient is a 74-year-old male who experienced lightheadedness and dizziness upon standing from a chair at home, resulting in a fall. He was sent in by his PCP. He reports that when he fell, he hit his head and fell back, hitting the back of his
head. This episode occurred when the patient stood up quickly after hearing a noise, in order to run to inform his who was upstairs Currently, he is asymptomatic. On PE, he has a small abrasion to the back of the head with no laceration to
repair. His tetanus was updated. Of note, he was hospitalized 5 months ago for cardiac arrest secondary to NSTEMI however his ECG today shows no new ischemic changes no evidence of bifascicular block. He has a follow up with Dr. Rowe his
regulatory compliance director in [address] scan shows no evidence of intracranial bleeding. Suspect lightheadedness secondary to orthostatic hypotension. CMP did show signs of dehydration did want to initiate IV fluids but patient states he prefers to
rehydrate orally and feels well and wants to go home. I did review case and treatment plan with my ED attending. Patient stable for discharge.
Review of Systems
Review of Systems
All Other Systems: ROS reviewed and negative except as documented in HPI and ROS
Phy Exam
Physical Exam
Physical Exam:
see hpi
Course
Orders/Labs/Results
Orders:
Orders
05/31/25 21:34
Electrocardiogram (*1) Urgent
Reason for Study: Syncope
05/31/25 21:35
CT Head W/o Iv Contrast Urgent
Comment:
Reason For Exam: fall, posterior head strike
EKG- Treatment ONCE
05/31/25 21:37
CT Cervical Spine W/o Iv Contr Urgent
Comment:
Reason For Exam: fall, posteior headstrike.
05/31/25 22:00
Complete Blood Count/With Diff Urgent
Comprehensive Metabolic Panel Urgent
06/01/25 02:26
Tetanus/Diphth/Acelpertussis [Adacel] 0.5 ml IM .ONCE ONE
Abnormal Lab Results
05/31/25
22:00
RBC 3.49 L 10^6/uL
(4.70-6.10)
Hgb 10.9 L g/dL
(13.0-18.0)
Hct 32.6 L %
(39.0-52.0)
MCH 31.2 H pg
(27.0-31.0)
RDW 15.7 H %
(11.5-14.5)
MPV 10.7 H fL
(7.4-10.4)
Absolute Monos (auto) 1.0 H 10^3/uL
(0.1-0.6)
Monocytes % 10.3 H %
(1.7-9.3)
Chloride 112 H mmol/L
(98-107)
BUN 31 H mg/dl
(9-20)
Creatinine 1.4 H mg/dL
(0.7-1.3)
05/31/25 22:00
05/31/25 22:00
Vital Signs
Initial and Last Documented VS:
Initial Vital Signs
Temp Pulse Resp BP Pulse Ox
97.4 F 71 18 123/67 97
05/31/25 21:30 05/31/25 21:30 05/31/25 21:30 05/31/25 21:30 05/31/25 21:30
Last Documented Vital Signs
Temp Pulse Resp BP Pulse Ox
97.7 F 63 18 131/61 100
05/31/25 23:39 06/01/25 02:30 06/01/25 02:18 06/01/25 02:18 06/01/25 03:06
*Pulse Oximetry
SaO2: 100
Oxygen Mode of Delivery: Room air
Patient hypoxic: no
*Critical Care Note
Total Time (30-74mins, 75-104mins- exclusive of procedures): Not Applicable
ED Attending Note
-
Portions of this chart may have been created with voice recognition software.� Occasional wrong word or��sound alike� substitutions may have occurred due to the inherent limitations of voice recognition software.
Discharge Plan
Departure
Patient Disposition: Home (Routine Discharge)
Date of Disposition: 06/01/25
Time of Disposition: 02:58
Patient with high blood pressure during this ER visit?: Yes
Condition: Good
Discharge Problem:
Fall, Intermittent lightheadedness
Instructions: Head Injury in Adults (DC), Skin Abrasions (DC), Near Fainting (DC)
Prescriptions:
No Action
famotidine 20 mg Tablet
20 mg PO HS
pantoprazole 40 mg Tablet,Delayed Release (Dr/Ec)
40 mg PO DAILY
olmesartan 20 mg Tablet
20 mg PO DAILY
Saline Nasal 0.65 % Aerosol,[place]
1 spray INTRANASAL DAILYPRN PRN (Reason: dry sinuses)
Brilinta 90 mg Tablet
90 mg PO BID Qty: 60 0RF
atorvastatin 40 mg Tablet
40 mg PO QPM Qty: 30 0RF
metoprolol succinate 50 mg Tablet Extended Release 24 Hr
50 mg PO DAILY Qty: 30 0RF
aspirin 81 mg Tablet,Chewable
81 mg PO DAILY Qty: 0 0RF
Referrals:
Tamar Jimenez PA [Family Provider, Family Practice]
Activity Restrictions/Additional Instructions:
As discussed, please follow-up with Dr. Rowe with your scheduled appointment in the coming days.
Please continue to stay well-hydrated. Please take your time standing up from sitting. Please continue to monitor your symptoms.
PLEASE RETURN EMERGENCY DEPARTMENT SHOULD YOU DEVELOP HEADACHE, NAUSEA OR VOMITING, CHEST PAIN, LIGHTHEADEDNESS, DIZZINESS, SHORTNESS OF BREATH, FEVERS OR CHILLS, OR ANY OTHER SIGNS OR SYMPTOMS WORRISOME TO YOU.
Interventions
Interventions:
*Risk Screen - Suicide Last Done: 05/31/25 21:30
*General Assessment Last Done: 05/31/25 21:30
*Neglect/Abuse Screening Last Done: 05/31/25 23:35
*ED- Fall Risk Assessment Last Done: 05/31/25 23:34
*ED COVID-19 Vaccine History Last Done: 05/31/25 23:34
*Nursing Disposition Last Done: 06/01/25 03:10
ED-Musculoskeletal Assessment Last Done: 05/31/25 23:40
ED- Neurological Assessment Last Done: 05/31/25 23:40
ED-Skin Assessment Last Done: 05/31/25 23:40
Discharge Date and Time
Discharge Date/Time: 06/01/25 03:11
Print Language: FAROESE
[2025-06-01] MEDS: ADACEL 0.5 ML IM (03:07)
== END 2025-06-01 03:11 | disposition home or self-care (01) ==
LOC: EMR 21:26
PROVIDERS: Student in an Organized Health Care Education/Training Program; EMERGENCY PHYSICIAN Emergency Medicine; FAMILY PHYSICIAN Physician Assistant
DX: R42 Dizziness and giddiness (principal); S00.01XA Abrasion of scalp, initial encounter; W19.XXXA Unspecified fall, initial encounter; Z23 Encounter for immunization; I10 Essential (primary) hypertension
CPT/HCPCS: 99285; 90471; 70450; 72125; 80053; 85025; 90715; 93005; 93797; 93798

== ENCOUNTER 2025-06-09 08:49 | Outpatient (RCR) | payer OTHER, SELFPAY | END 2025-06-09 17:58 | disposition home or self-care (01) | LOC: CRHB 08:49 | PROVIDERS: ATTENDING PHYSICIAN Internal Medicine Cardiovascular Disease; FAMILY PHYSICIAN Physician Assistant | DX: I25.10 Atherosclerotic heart disease of native coronary artery without angina pectoris (principal); Z95.5 Presence of coronary angioplasty implant and graft; I25.2 Old myocardial infarction; I21.01 ST elevation (STEMI) myocardial infarction involving left main coronary artery | CPT/HCPCS: G0422; G0423 ==

== ENCOUNTER → 2025-06-11 07:39 | Outpatient (REF) | payer OTHER, SELFPAY | LOC: RAD 07:39 | PROVIDERS: ATTENDING PHYSICIAN Physician Assistant | DX: I87.2 Venous insufficiency (chronic) (peripheral) (principal) | CPT/HCPCS: 76536; 93970 ==

== ENCOUNTER → 2025-06-24 12:44 | Outpatient (REF) | payer OTHER, SELFPAY | LOC: RCS 12:44 | PROVIDERS: ATTENDING PHYSICIAN Internal Medicine Cardiovascular Disease; FAMILY PHYSICIAN Physician Assistant | DX: I25.10 Atherosclerotic heart disease of native coronary artery without angina pectoris (principal); R06.09 Other forms of dyspnea | CPT/HCPCS: 93306 ==

== ENCOUNTER → 2025-07-14 08:28 | Outpatient (REF) | payer OTHER, SELFPAY ==
[2025-07-14 08:40] VITALS: BP 145/77; BP_SYST 77
== END ==
LOC: RADI 08:28
PROVIDERS: ATTENDING PHYSICIAN Physician Assistant
DX: E04.2 Nontoxic multinodular goiter (principal)
CPT/HCPCS: 10005; 10006; 88173